=== PATIENT | female | born 1975 | race Caucasian/White ===

== ENCOUNTER 2023-06-20 10:08 | Emergency (ER) | payer OTHER, SELFPAY ==
[2023-06-20 10:16] VITALS: BP 125/89
[2023-06-20] MEDS: POLYTRIM OPHTHALMIC SOLUTION 2 DROP OPHTH (12:08)
--- NOTE | 2023-06-20 12:11 | ED.GENMED ---
History of Present Illness
General
Chief Complaint: Eye Problems
Source: patient
Exam Limitations: none
Time Seen by Provider: 06/20/23 11:03
Nursing documentation reviewed up to this point in time: agreed with
Travel History
Have you had any contact with someone who has COVID-19?: No
Do you have any symptoms of coronavirus? Fever > 100 degrees, chills, cough, shortness of breath, sore throat, loss of taste or smell, muscle aches, or headache?: No
History of Present Illness
History of Present Illness:
47-year-old female with a history of hypothyroidism presents for evaluation of redness and itching, discharge from the left eye. Patient notably had shingles that was diagnosed 2 weeks ago and future course of Valtrex. She still has mild rash on
the right neck. She says that last night she noted some itching in the left eye and noted that her eye was very red. She has been having significant drainage from the eye today and so she came to the emergency room to be assessed. She
denies any eye pain. She denies any loss of vision. She denies any trauma to the eye. No recent URI symptoms. She denies any other complaints today.
Review of Systems
Review of Systems
All Other Systems: ROS reviewed and negative except as documented in HPI and ROS
EENT: Reports other (Redness, itchiness, discharge from her eye)
Phy Exam
Physical Exam
Physical Exam:
General: Well appearing and non-toxic
Head: Normocephalic, atraumatic
Eyes: Pupils are 4 mm and briskly reactive to light bilaterally; extraocular movements are intact; on exam of the left eye patient has conjunctival injection with purulent expiring, no hypopyon; on fluorescein exam patient has no dendritic lesions,
no corneal abrasions or ulcers, negative Mikel sign; visual acuity as documented actually better in the affected eye; visual soto are intact
Neck: appears supple
CV: No evidence of cyanosis
Resp: No accessory muscle use
Abd: Non-distended
Extremities: No deformities
Neuro: Alert
Psych: Normal affect
Skin: Patient has rash on the right posterior lateral neck and on the left fonseca in the C2 dermatome, lesions mostly scabbed over no new vesicles noted
Scores
Heart Failure Risk
Heart Failure Risk Score: Not Applicable
Heart Score for Chest Pain Patients
STEMI patient?: Not applicable
Withdrawal Assessment of Alcohol
Withdrawal Assessment Completed?: Not applicable
Course
Orders/Labs/Results
Orders:
Orders
06/20/23 11:08
Visual Acuity- Treatment ONCE
06/20/23 11:46
Fluorescein Sodium [Ful-Dorene] 3 mg .ROUTE .STK-MED ONE
06/20/23 12:11
Ibuprofen [Motrin] 400 mg PO NOW STA
06/20/23 13:00
Polymyxin B/Trimethoprim [Polytrim Ophthalmic Solution] See Dose Instructions OPHTH QID
Vital Signs
Initial and Last Documented VS:
Initial Vital Signs
Temp Pulse Resp BP Pulse Ox
36.7 C 98 20 125/89 95
06/20/23 10:16 06/20/23 10:16 06/20/23 10:16 06/20/23 10:16 06/20/23 10:16
Last Documented Vital Signs
Temp Pulse Resp BP Pulse Ox
36.7 C 98 20 125/89 95
06/20/23 10:16 06/20/23 10:16 06/20/23 10:16 06/20/23 10:16 06/20/23 10:16
MDM/Problems Addressed
Differential Diagnosis Includes:
Conjunctivitis, corneal abrasion, uveitis
MDM/Problems Addressed:
47-year-old female presents for evaluation of itchiness, redness, drainage from the left eye over the past 24 hours. Vital signs normal. Exam as above. Exam is consistent with acute conjunctivitis. She has no dendritic lesions, no corneal
abrasions or ulcers. She does not wear contact lenses. Will plan to treat with antibiotic drops. Will refer to ophthalmology for follow-up exam. She feels comfortable with this plan. Spoke about return precautions all questions answered.
*Pulse Oximetry
Patient hypoxic: no
*Critical Care Note
Total Time (30-74mins, 75-104mins- exclusive of procedures): Not Applicable
Data Reviewed
Source: patient
ED Attending Note
-
Portions of this chart may have been created with voice recognition software.� Occasional wrong word or��sound alike� substitutions may have occurred due to the inherent limitations of voice recognition software.
Discharge Plan
Departure
Patient Disposition: Home (Routine Discharge)
Date of Disposition: 06/20/23
Time of Disposition: 12:00
Patient with high blood pressure during this ER visit?: No
Discharge Problem:
Conjunctivitis
Instructions: Conjunctivitis (Pinkeye) (DC)
Prescriptions:
New
polymyxin B sulf-trimethoprim 10,000 unit- 1 mg/mL drops
1 drp ophthalmic (eye) Q3H 10 Days Qty: 10 0RF
Referrals:
Angel Claire MD [Active] - Call in 1-3 days for appt (Ophthalmology)
Activity Restrictions/Additional Instructions:
Thank you for visiting the Emergency Department at [facility].
1. Please schedule a follow up appointment as directed. Call first thing tomorrow morning to make an appointment.
2. If indicated, please take your medications as instructed and indicated on discharge paperwork.
3. If any of your symptoms do not improve, or persist, or become more severe within 6-12 hours, please return to the emergency department for further care.
4. Please return to the emergency department if you develop a headache, neck pain/stiffness, fever greater than 100.4F, chest pain, shortness of breath, persistent nausea, vomiting, slurred speech, difficulty walking, numbness/tingling, weakness,
signs of infection or any other symptoms that are worrisome to you.
Please call [phone] if you have any questions.
Discharge Date and Time
Print Language: TURKISH
[2023-06-20] MEDS: MOTRIN 400 MG PO (12:20)
--- NOTE | 2023-06-20 12:51 | EDRN ---
One time LYFT provided via Charge nurse. Pt to ER entrance. Pt reports staying at [facility].
== END 2023-06-20 12:32 | disposition home or self-care (01) ==
LOC: EMR 10:08
PROVIDERS: EMERGENCY PHYSICIAN Emergency Medicine
DX: H10.9 Unspecified conjunctivitis (principal); E03.9 Hypothyroidism, unspecified
CPT/HCPCS: 99282

== ENCOUNTER 2023-06-28 18:43 | Emergency (ER) | payer OTHER, SELFPAY ==
[2023-06-28 18:58] VITALS: BP 112/76
[2023-06-28 19:28] LABS: % Basophils 1.2 % (0-2); % Eosinophils 3.3 % (0-6); % Immature Granulocytes 0.6 % (0-0.5); % Lymphocytes 21.9 % (20.5-51.1); % Monocytes 6.4 % (1.7-9.3); % Neutrophils 66.6 % (42.2-75.2); Absolute Basophils 0.1 10^3/uL (0-0.2); Absolute Eosinophils 0.3 10^3/uL (0-0.7); Absolute Immature Granulocytes 0.1 10^3/uL (0-0.05); Absolute Lymphocytes 1.8 10^3/uL (1.2-3.4); Absolute Monocytes 0.5 10^3/uL (0.1-0.6); Absolute Neutrophils 5.5 10^3/uL (1.4-6.5); Hematocrit 36.3 % (37.0-47.0); Hemoglobin 12.1 g/dL (12.0-16.0); Mean Corp Hgb Conc. 33.3 g/dL (33.0-37.0); Mean Corpuscular Hgb 28.3 pg (27.0-31.0); Mean Platelet Volume 9.4 fL (7.4-10.4); Nucleated Red Blood Cells % 0 %; Platelet Count 340 10^3/uL (130-400); Red Blood Cell Count 4.27 10^6/uL (4.20-5.40); Red Cell Dist. Width 15.5 % (11.5-14.5); White Blood Cell Count 8.3 10^3/uL (4.8-10.8)
[2023-06-28 19:41] LABS: ALT (SGPT) 14 U/L (0-35); AST (SGOT) 16 U/L (14-36); Albumin 3.7 g/dl (3.5-5.0); Alkaline Phosphatase 78 U/L (38-126); Blood Urea Nitrogen 15 mg/dl (7-17); Calcium 8.7 mg/dl (8.4-10.2); Carbon Dioxide 20 mmol/L (22-30); Chloride 111 mmol/L (98-107); Glucose 116 mg/dl (70-99); Potassium 4.1 mmol/L (3.5-5.1); Sodium 136 mmol/L (135-145); Total Bilirubin 0.2 mg/dl (0.2-1.3); Total Protein 7.3 g/dl (6.3-8.2); eGFR > 60.00
[2023-06-28 20:05] LABS: Urine Albumin Trace (Neg - Trace); Urine Bilirubin Negative (Negative); Urine Character Slightly Cloudy (Clear); Urine Color Yellow; Urine Glucose Negative (Negative); Urine Ketone Trace (Negative); Urine Leukocyte 2+ (Negative); Urine Nitrite Positive (Negative); Urine Occult Blood Negative (Negative); Urine Specific Gravity 1.025 (<1.030); Urine Urobilinogen Negative (Neg - 1+)
[2023-06-28 20:21] LABS: Urine Bacteria Many (Negative); Urine Red Blood Cell 0-2 /HPF (0-2); Urine White Cell 80-90 /HPF (0-5)
[2023-06-28 23:14] VITALS: BP 93/68
[2023-06-28 23:15] VITALS: BMI 42.2
[2023-06-29] VITALS: BP 104/70
[2023-06-29 01:00] VITALS: BP 100/62
[2023-06-29 02:00] VITALS: BP 91/52
--- NOTE | 2023-06-29 03:30 | ED.GENMED ---
Addendum entered and electronically signed by Kiley Abrams PA-C 07/01/23 07:17:
urine culture yeh sensitive e coli, on cefdinir, no treatment change
Original Note:
History of Present Illness
General
Chief Complaint: Weakness
Source: patient
Time Seen by Provider: 06/29/23 00:28
Nursing documentation reviewed up to this point in time: agreed with
Travel History
Have you had any contact with someone who has COVID-19?: No
Do you have any symptoms of coronavirus? Fever > 100 degrees, chills, cough, shortness of breath, sore throat, loss of taste or smell, muscle aches, or headache?: No
History of Present Illness
History of Present Illness:
Patient presents to ED secondary to 2-day history of dysuria along with urinary frequency, along with 24-hour history of right arm tingling sensation. Patient is currently being treated for shingles on the right side of her face and neck, with mild
improvement in symptoms. Denies headache. Denies nausea, vomiting, or diarrhea. Denies abdominal pain. Denies loss of appetite. Denies recent illness. Patient was discharged from [facility] recently after being treated for psychiatric
illness. In addition, patient reports being evaluated at [facility] last year secondary to right arm tingling sensation, and was told that she had 'stroke'. Patient had been on Plavix daily, until recently when she ran out of her
medication. Patient states that she currently does not have a family physician.
Review of Systems
Review of Systems
Allergies reviewed?: Yes
All Other Systems: ROS reviewed and negative except as documented in HPI and ROS
Constitutional: Reports no symptoms; Denies fever
EENT: Reports no symptoms
Respiratory: Reports no symptoms
Cardiac: Reports no symptoms
ABD/GI: Reports no symptoms
: Reports dysuria and frequency
Musculoskeletal: Reports no symptoms
Skin: Reports no symptoms
Neurological: Reports numbness; Denies dizzy, headache or weakness
Phy Exam
Physical Exam
Physical Exam:
Physical Exam
General: no apparent distress, not acutely ill. afebrile
Head: nc/at. eomi
Neck: supple. no meningeal signs.
Heart: s1/s2 regular rate and rhythm, no murmur. equal radial pulses.
Lungs: no acute respiratory distress. clear bilaterally
Abdomen: normal bowel sounds. not tender.
Neuro: alert and oriented. no focal neurological deficits. normal speech. normal gait.
Skin: crusty, resolving rash noted over right side of neck without any purulent drainage/erythema.
Psychiatric: well kept. interactive and cooperative
Extremities: no edema. no calf tenderness.
Course
Orders/Labs/Results
Orders:
Orders
06/28/23 19:21
Complete Blood Count/With Diff Urgent
Comprehensive Metabolic Panel Urgent
Urinalysis Reflex To Culture Urgent
Date Specimen was Collected: 06/28/23
Time Specimen was Collected: 19:05
Urine Microscopic Reflex Cult Urgent
Urine Culture Urgent
BRYAN Source: U
Specimen Description:
Date Specimen was Collected: 06/28/23
Time Specimen was Collected: 19:05
06/29/23 01:41
CT Head W/o Iv Contrast Urgent
Comment:
Reason For Exam: right arm numbness/tingling
06/29/23 03:30
Cefdinir [Omnicef] 300 mg PO NOW STA
06/29/23 04:02
Case Management Consult ONCE
Case Management Consult: Discharge Planning
Abnormal Lab Results
06/28/23
19:21
Hct 36.3 L %
(37.0-47.0)
RDW 15.5 H %
(11.5-14.5)
Abs Immat Gran (auto) 0.1 H 10^3/uL
(0-0.05)
Immature Gran % 0.6 H %
(0-0.5)
Chloride 111 H mmol/L
(98-107)
Carbon Dioxide 20 L mmol/L
(22-30)
Glucose 116 H mg/dl
(70-99)
Urine Ketones Trace A
(Negative)
Urine Nitrite (Reflex) Positive A
(Negative)
Leukocyte Esterase Rfl 2+ A
(Negative)
Urine WBC (Reflex) 80-90 A /HPF
(0-5)
Urine Bacteria (Reflex) Many A
(Negative)
06/28/23 19:21
06/28/23 19:21
Vital Signs
Initial and Last Documented VS:
Initial Vital Signs
Temp Pulse Resp BP Pulse Ox
98.3 F 84 20 112/76 96
06/28/23 18:58 06/28/23 18:58 06/28/23 18:58 06/28/23 18:58 06/28/23 18:58
Last Documented Vital Signs
Temp Pulse Resp BP Pulse Ox
98.5 F 81 15 92/66 98
06/29/23 03:53 06/29/23 03:53 06/29/23 03:53 06/29/23 03:53 06/29/23 03:53
MDM/Problems Addressed
MDM/Problems Addressed:
History and exam, along with urinalysis concerning for potential UTI. As such, patient will be started on antibiotics.
Patient with also nonspecific right arm tingling sensation, which has been intermittent recently. CT head without any acute findings. Difficult to exclude potential TIA. As such, patient will be restarted on Plavix as originally prescribed after
previous episode, along with referral to neurology for further evaluation and treatment. If there is no focal neurological deficit noted, with ongoing shingles treatment as well as current UTI, I do not believe that any further inpatient
evaluation/treatment is warranted at this time. It is reasonable to start patient on antibiotics and refer to medical clinic as well as neurology for an outpatient evaluation/treatment. Advised to return to ED with worsening symptoms. Patient
expresses understanding at time of discharge.
Prior to discharge, patient expressed that she has no means of getting home, due to lack of funding and as she is currently homeless. As such, case management consulted for assistance with discharge plan
*Critical Care Note
Total Time (30-74mins, 75-104mins- exclusive of procedures): Not Applicable
ED Attending Note
-
Portions of this chart may have been created with voice recognition software.� Occasional wrong word or��sound alike� substitutions may have occurred due to the inherent limitations of voice recognition software.
Discharge Plan
Departure
Patient Disposition: Home (Routine Discharge)
Date of Disposition: 06/29/23
Time of Disposition: 03:30
Patient with high blood pressure during this ER visit?: Yes
Discharge Problem:
UTI (urinary tract infection), Paresthesia
Instructions: Paresthesia (DC), Urinary Tract Infection, Adult ED
Prescriptions:
New
cefdinir 300 mg capsule
300 mg PO BID Qty: 14 0RF
clopidogrel [Plavix] 75 mg tablet
75 mg PO DAILY Qty: 30 0RF
No Action
polymyxin B sulf-trimethoprim 10,000 unit- 1 mg/mL drops
1 drp ophthalmic (eye) Q3H 10 Days Qty: 10 0RF
Referrals:
[facility] [Outside]
Kiley Jaffe, DO [Active] -
UNKNOWN - PT DOES,NOT KNOW [Family Provider] -
Activity Restrictions/Additional Instructions:
As discussed, you must follow-up with referred medical clinic as well as neurologist for further evaluation and treatment. Please return to ED with worsening symptoms. Your prescriptions have been sent electronically to [facility] pharmacy on [address]
in [place].
Interventions
Interventions:
*Risk Screen - Suicide Last Done: 06/28/23 18:58
*General Assessment Last Done: 06/28/23 18:58
*Neglect/Abuse Screening Last Done: 06/28/23 18:58
ED- Fall Risk Assessment Last Done: 06/28/23 18:58
*ED COVID-19 Vaccine History Last Done: 06/28/23 18:58
*Nursing Disposition Last Done: 06/29/23 04:26
ED- Cardiac Assessment Last Done: 06/28/23 23:15
ED- Neurological Assessment Last Done: 06/28/23 23:15
ED- Pulmonary Assessment Last Done: 06/28/23 23:15
Discharge Date and Time
Discharge Date/Time: 06/29/23 04:30
Print Language: SERBIAN
[2023-06-29] MEDS: OMNICEF 300 MG PO (03:49)
[2023-06-29 03:50] VITALS: BP 92/66
[2023-06-29 03:53] VITALS: BP 92/66
--- NOTE | 2023-06-29 11:45 | CM ---
CM received consult to assist with ride. Patient declined to wait for assistance from CM and left the emergency room.
== END 2023-06-29 04:30 | disposition home or self-care (01) ==
LOC: EMR 18:43
PROVIDERS: EMERGENCY PHYSICIAN Emergency Medicine
DX: N39.0 Urinary tract infection, site not specified (principal); R20.2 Paresthesia of skin; R03.0 Elevated blood-pressure reading, without diagnosis of hypertension; Z59.00 Homelessness unspecified; Z91.148 Patient's other noncompliance with medication regimen for other reason; B02.9 Zoster without complications; E03.9 Hypothyroidism, unspecified; D64.9 Anemia, unspecified; Z86.73 Personal history of transient ischemic attack (TIA), and cerebral infarction without residual deficits; Z79.02 Long term (current) use of antithrombotics/antiplatelets
CPT/HCPCS: 99284; 70450; 80053; 81003; 81015; 85025; 87086; 87088; 87186

== ENCOUNTER 2023-09-16 23:46 | Emergency (ER) | payer OTHER, SELFPAY ==
[2023-09-16 23:46] VITALS: BP 133/83
--- NOTE | 2023-09-16 23:51 | ED.GENMED ---
History of Present Illness
General
Chief Complaint: Extremity Pain (non-traumatic)
Source: patient, ambulance crew and previous hospital records (ED visit June of this year where patient prevented with 2-day history of UTI symptoms as well as right arm paresthesia. Noted to have UTI. CT of the head was unremarkable. Noted to
be homeless at that time)
Exam Limitations: none
Time Seen by Provider: 09/16/23 23:49
Nursing documentation reviewed up to this point in time: agreed with
History of Present Illness
History of Present Illness:
This is a 47-year-old currently homeless woman who called 911 from local grocery store complaining of bilateral lower extremity pain and swelling that has been ongoing for the past several days.
She reports no history of similar episodes in the past.
She denies recent falls nor injuries. She denies coughing or shortness of breath. Denies dyspnea on exertion, denies chest pain. She denies abdominal pain, no nausea nor vomiting, no diarrhea nor constipation.
Her only daily medications are levothyroxine as well as oral iron tablets. She states these have been prescribed/refilled at the last hospital she visited.
Review of records reveals ED visit June of this year with complaints of UTI symptoms as well as right arm paresthesia. At that time had recently been discharged from [facility]. Was also homeless at that time. ED evaluation in June noted
UTI. Unremarkable CT of the head. Unremarkable laboratory studies.
Case management was consulted during ED visit in June to assist with transportation etc. but patient left the ED on her own accord prior to case management evaluation.
Past History
Past History
ED Past Medical History: CVA (Reported TIA in the past), Hypothyroidism, Psychiatric and Other (Anemia; UTI)
ED Past Surgical History: Appendectomy and
Social History
Tobacco: Non-smoker
Alcohol: None
Drug: None
Personal: Single
Living: homeless
Employment: Not employed
Family History
Family History: Other (Noncontributory)
Phy Exam
Physical Exam
Physical Exam:
GENERAL: 47-year-old obese woman appears somewhat older than stated age. Disheveled and unkempt. Awake and alert, easily conversant, cooperative and overall appears in no acute distress.
EYE: anicteric, there is mild eczematous dermatitis of eyelids.
NECK: Supple, nontender, no meningismus, no significant adenopathy. No JVD.
ENT: oral mucosa is moist. No rhinorrhea.
CARDIAC: Regular rate and rhythm. no murmur.
LUNGS: Clear breath sounds bilaterally, no acute respiratory distress, no wheezes/rales/rhonchi
ABDOMEN: Obese, soft, nondistended, without focal tenderness, normoactive BS.
NEUROLOGICAL: Alert and oriented x3, no focal neuro deficits.
SKIN: Warm and dry, normal color, skin intact. No rash.
MUSCULOSKELETAL: There is tense nonpitting edema bilateral lower legs with mild venous stasis skin thickening and erythema distal aspect of the lower legs bilaterally. There is no ulcerations nor drainage. Mild generalized tenderness to the lower
legs bilaterally. There is no joint effusion. Peripheral pulses are full and equal b/l.
PSYCH: Mildly blunted affect. Cooperative. Normal speech pattern.
Course
Orders/Labs/Results
Orders:
Orders
09/17/23 00:01
US Periph Venous LOWER Ext Mark Urgent
Comment:
Reason For Exam: B/L LE EDEMA X FEW DAYS
09/17/23 00:13
Complete Blood Count/With Diff Urgent
Comprehensive Metabolic Panel Urgent
Free T4 Urgent
NT-proBNP Urgent
TSH Reflex To Free T4 Urgent
09/17/23 01:[address] Non Medication Order As Directed
Physician Order: knee high compression stockings b/l
Above order entered?: Yes
09/17/23 01:48
Levothyroxine [Synthroid] 300 mcg PO NOW STA
Abnormal Lab Results
09/17/23
00:13
RBC 3.61 L 10^6/uL
(4.20-5.40)
Hgb 10.8 L g/dL
(12.0-16.0)
Hct 33.0 L %
(37.0-47.0)
MCHC 32.7 L g/dL
(33.0-37.0)
RDW 16.0 H %
(11.5-14.5)
Abs Immat Gran (auto) 0.1 H 10^3/uL
(0-0.05)
Immature Gran % 1.6 H %
(0-0.5)
Chloride 108 H mmol/L
(98-107)
Carbon Dioxide 20 L mmol/L
(22-30)
BUN 18 H mg/dl
(7-17)
Creatinine 1.3 H mg/dL
(0.6-1.0)
Glucose 115 H mg/dl
(70-99)
TSH (Reflex) 81.20 H uIU/ml
(0.47-4.68)
Free T4 0.15 L ng/dl
(0.78-2.19)
09/17/23 00:13
09/17/23 00:13
Vital Signs
Initial and Last Documented VS:
Initial Vital Signs
Temp Pulse Resp BP Pulse Ox
98.8 F 93 18 133/83 96
09/16/23 23:46 09/16/23 23:46 09/16/23 23:46 09/16/23 23:46 09/16/23 23:46
Last Documented Vital Signs
Temp Pulse Resp BP Pulse Ox
98.8 F 93 18 133/83 96
09/16/23 23:46 09/16/23 23:46 09/16/23 23:46 09/16/23 23:46 09/16/23 23:46
MDM/Problems Addressed
Differential Diagnosis Includes:
Concern for venous stasis/dependent edema, lymphedema, other consideration is DVT, CHF, exacerbation of hypothyroidism, exacerbation of anemia.
Will check venous Doppler bilateral lower extremities.
Will check labs including BNP and TSH, CBC.
Chronic conditions affecting care: Other (Hypothyroidism, anemia.)
*Radiology
Radiology exam reviewed: other (Venous Dopplers are negative for DVT bilaterally. There is note of subcutaneous edema bilateral lower legs.)
*Pulse Oximetry
Patient hypoxic: no
*Critical Care Note
Total Time (30-74mins, 75-104mins- exclusive of procedures): Not Applicable
Patient Management
Social determinants of health affecting care: Living situation (Patient is chronically homeless. Poor follow-up with PCP), Poor outpatient follow-up and Poor social support
Update Note
Update Note:
09/17/2023 0149 AM
Patient sleeping when undisturbed, awakens easily and overall appears in no acute distress.
Venous Doppler bilateral lower extremities negative for DVT. There is note of subcutaneous edema.
Labs show mild anemia. White blood cell count is normal.
Chemistries with mildly elevated creatinine of 1.3 which is bumped up from previous. I suspect an element of dehydration as BNP is quite low at 31.
TSH is markedly elevated at 81. Patient now admits that she ran out of her Synthroid perhaps 2 days ago.
Review of records notes a brief hospitalization January at [facility] where she was treated for potential TIA and also found to be hypothyroid with TSH of 90. Started on Synthroid 200 mcg at that time.
She was also recommended to continue low-dose aspirin, Lipitor 80 mg was started as well as to continue ferrous sulfate 325 mg.
Patient admits that she has run out of her medications and had been following with the primary care physician tony Jimenez but states this is no longer her primary care physician. Currently lacks PCP.
Will refill her medications and recommend we titrate Synthroid up to 300 mcg.
Will attempt LISANDRA stockings versus brandy wraps.
Encouraged to increase clear liquids on a daily basis.
Prior records note that patient had been staying in a homeless group home but she elected to leave the group home and declines to return.
Will refer to our family practice clinic for follow-up and patient has been encouraged to follow-up with a PCP to recheck thyroid function within the next 4 to 6 weeks.
Recommend she elevate her legs when seated.
ED Attending Note
-
Portions of this chart may have been created with voice recognition software.� Occasional wrong word or��sound alike� substitutions may have occurred due to the inherent limitations of voice recognition software.
Discharge Plan
Departure
Patient Disposition: Home (Routine Discharge)
Date of Disposition: 09/17/23
Time of Disposition: :53
Patient with high blood pressure during this ER visit?: No
Condition: Good
Discharge Problem:
Dependent edema, Hypothyroidism, Creatinine elevation
Instructions: Hypothyroidism (underactive thyroid), Lymphedema (DC)
Prescriptions:
New
levothyroxine 300 mcg tablet
300 mcg PO DAILY Qty: 30 1RF
aspirin 81 mg capsule
81 mg PO DAILY Qty: 90 0RF
atorvastatin 80 mg tablet
80 mg PO HS Qty: 90 0RF
ferrous sulfate 325 mg (65 mg iron) tablet
325 mg PO DAILY Qty: 90 0RF
Discontinued
polymyxin B sulf-trimethoprim 10,000 unit- 1 mg/mL drops
1 drp ophthalmic (eye) Q3H 10 Days Qty: 10 0RF
cefdinir 300 mg capsule
300 mg PO BID Qty: 14 0RF
clopidogrel [Plavix] 75 mg tablet
75 mg PO DAILY Qty: 30 0RF
Referrals:
[facility] [Provider Group] - Call in 1-3 days for appt
Vimal Jimenez DO [Family Provider] -
Interventions
Interventions:
*Risk Screen - Suicide Last Done: 09/16/23 23:46
*General Assessment Last Done: 09/16/23 23:46
*Neglect/Abuse Screening Last Done: 09/16/23 23:46
ED-Skin Assessment Last Done: 09/17/23 00:22
ED-Peripheral Vascular Assessment Last Done: 09/17/23 00:22
ED-Musculoskeletal Assessment Last Done: 09/17/23 00:22
Discharge Date and Time
Print Language: CZECH
[2023-09-17 00:30] LABS: % Basophils 1.5 % (0-2); % Eosinophils 2.9 % (0-6); % Immature Granulocytes 1.6 % (0-0.5); % Lymphocytes 30.2 % (20.5-51.1); % Neutrophils 56.8 % (42.2-75.2); Absolute Basophils 0.1 10^3/uL (0-0.2); Absolute Eosinophils 0.2 10^3/uL (0-0.7); Absolute Immature Granulocytes 0.1 10^3/uL (0-0.05); Absolute Lymphocytes 2.3 10^3/uL (1.2-3.4); Absolute Monocytes 0.5 10^3/uL (0.1-0.6); Absolute Neutrophils 4.3 10^3/uL (1.4-6.5); Hemoglobin 10.8 g/dL (12.0-16.0); Mean Corp Hgb Conc. 32.7 g/dL (33.0-37.0); Mean Corpuscular Hgb 29.9 pg (27.0-31.0); Mean Corpuscular Volume 91.4 fL (81.0-99.0); Mean Platelet Volume 9.7 fL (7.4-10.4); Nucleated Red Blood Cells % 0 %; Platelet Count 206 10^3/uL (130-400); Red Blood Cell Count 3.61 10^6/uL (4.20-5.40); White Blood Cell Count 7.6 10^3/uL (4.8-10.8)
[2023-09-17 00:35] LABS: ALT (SGPT) 16 U/L (0-35); AST (SGOT) 23 U/L (14-36); Albumin 4.3 g/dl (3.5-5.0); Alkaline Phosphatase 64 U/L (38-126); Blood Urea Nitrogen 18 mg/dl (7-17); Calcium 9.3 mg/dl (8.4-10.2); Carbon Dioxide 20 mmol/L (22-30); Chloride 108 mmol/L (98-107); Glucose 115 mg/dl (70-99); Sodium 138 mmol/L (135-145); Total Bilirubin 0.4 mg/dl (0.2-1.3); Total Protein 7.3 g/dl (6.3-8.2); eGFR 51.04
[2023-09-17 00:45] LABS: NT-proBNP 31.4 pg/ml
[2023-09-17 01:42] LABS: Free T4 0.15 ng/dl (0.78-2.19)
[2023-09-17 02:13] VITALS: BP 142/78
[2023-09-17] MEDS: SYNTHROID 300 MCG PO (02:37)
== END 2023-09-17 02:45 | disposition home or self-care (01) ==
LOC: EMR 23:46
PROVIDERS: EMERGENCY PHYSICIAN Emergency Medicine; FAMILY PHYSICIAN Family Medicine
DX: R60.0 Localized edema (principal); E03.9 Hypothyroidism, unspecified; R79.89 Other specified abnormal findings of blood chemistry; D64.9 Anemia, unspecified; R20.2 Paresthesia of skin; M79.604 Pain in right leg; M79.605 Pain in left leg; Z59.00 Homelessness unspecified; Z79.890 Hormone replacement therapy; Z86.73 Personal history of transient ischemic attack (TIA), and cerebral infarction without residual deficits; Z87.440 Personal history of urinary (tract) infections; Z90.49 Acquired absence of other specified parts of digestive tract; Z91.148 Patient's other noncompliance with medication regimen for other reason
CPT/HCPCS: 99284; 80053; 83880; 84439; 84443; 85025; 93970

== ENCOUNTER 2023-09-25 06:30 | Observation (INO) | payer OTHER, SELFPAY ==
[2023-09-25] VITALS (10 sets, daily range): BP systolic 103–140; BP diastolic 61–94; PULSE 71; O2SAT 96; BMI 47.2
[2023-09-25 02:47] LABS: % Basophils 0.9 % (0-2); % Eosinophils 1.3 % (0-6); % Immature Granulocytes 0.4 % (0-0.5); % Lymphocytes 20.9 % (20.5-51.1); % Monocytes 7.1 % (1.7-9.3); % Neutrophils 69.4 % (42.2-75.2); Absolute Basophils 0.1 10^3/uL (0-0.2); Absolute Eosinophils 0.1 10^3/uL (0-0.7); Absolute Lymphocytes 1.4 10^3/uL (1.2-3.4); Absolute Monocytes 0.5 10^3/uL (0.1-0.6); Absolute Neutrophils 4.8 10^3/uL (1.4-6.5); Hematocrit 31.3 % (37.0-47.0); Hemoglobin 10.4 g/dL (12.0-16.0); Mean Corp Hgb Conc. 33.2 g/dL (33.0-37.0); Mean Corpuscular Hgb 30.3 pg (27.0-31.0); Mean Corpuscular Volume 91.3 fL (81.0-99.0); Nucleated Red Blood Cells % 0 %; Platelet Count 263 10^3/uL (130-400); Red Blood Cell Count 3.43 10^6/uL (4.20-5.40); Red Cell Dist. Width 15.7 % (11.5-14.5); White Blood Cell Count 6.9 10^3/uL (4.8-10.8)
[2023-09-25 03:01] LABS: ALT (SGPT) 11 U/L (0-35); AST (SGOT) 17 U/L (14-36); Alkaline Phosphatase 69 U/L (38-126); Blood Urea Nitrogen 13 mg/dl (7-17); Calcium 8.8 mg/dl (8.4-10.2); Carbon Dioxide 22 mmol/L (22-30); Chloride 107 mmol/L (98-107); Glucose 99 mg/dl (70-99); Potassium 3.8 mmol/L (3.5-5.1); Sodium 136 mmol/L (135-145); Total Bilirubin 0.5 mg/dl (0.2-1.3); eGFR > 60.00
--- NOTE | 2023-09-25 04:54 | ED.MUSCINJ ---
HPI-Injury
General
Chief Complaint: Extremity Pain (non-traumatic)
Source: patient
Time Seen by Provider: 09/25/23 03:51
Nursing documentation reviewed up to this point in time: agreed with
History of Present Illness-Injury
Initial Injury comments:
This is a homeless 47-year-old female that presents with worsening leg swelling and inability to walk. Patient called 911 from local hotel where she is staying reporting lower extremity swelling, redness along with the inability to walk. Patient
was seen in the emergency department approximately 1 week ago for similar symptoms but states that tonight they have been worse. At last visit patient states that
Past History
Past History
ED Past Medical History: CVA (Reported TIA in the past), Hypothyroidism, Psychiatric and Other (Anemia; UTI)
ED Past Surgical History: Appendectomy and
Social History
Tobacco: Non-smoker
Alcohol: None
Drug: None
Personal: Single
Living: homeless
Employment: Not employed
Family History
Family History: Other (Noncontributory)
Review of Systems
Review of Systems
Allergies reviewed?: Yes
All Other Systems: ROS reviewed and negative except as documented in HPI and ROS
Constitutional: Reports fatigue and sleep disturbance
EENT: Reports no symptoms
Respiratory: Reports no symptoms
Cardiac: Reports no symptoms
ABD/GI: Reports no symptoms
: Reports no symptoms
Musculoskeletal: Reports edema and back pain
Skin: Reports no symptoms
Neurological: Reports no symptoms
Endocrine: Reports no symptoms
Hematologic/Lymphatic: Reports no symptoms
Psychiatric: Reports anxiety
Phy Exam
General Physical Exam
General Presentation: mild distress
General age: appears older than age
General Skin: warm and feels hot
General Habitus: obese and poor hygiene
General Mental: anxious
General Hydration: dry mucous membranes
Pulmonary Exam
Pulmonary Exam: lungs clear and no respiratory distress
Neurological Exam
Neurological Exam: alert and oriented x3
Musculoskeletal Exam
Musculoskeletal Exam: full ROM and edema
Skin Exam
Skin Exam: erythema (Bilateral lower), redness (Likely fungal infection in the groin and upper leg) and warmth
Injury Course
Orders/Labs/Results
Orders:
Orders
09/25/23 02:36
CMP [Comprehensive Metabolic Panel] Urgent
Complete Blood Count/With Diff Urgent
TSH Reflex To Free T4 Urgent
09/25/23 04:56
US Periph Venous LOWER Ext Mark Urgent
Comment:
Reason For Exam: swelling, worse from last week
09/25/23 05:11
Case Management Consult ONCE
Case Management Consult: Discharge Planning
09/25/23 05:12
Add On- LAB Urgent
Tests Added?: tsh reflex to free t4
09/25/23 05:21
Nystatin Cream [Mycostatin Cream] 1 applic TOPICAL NOW STA
Abnormal Lab Results
09/25/23
02:36
RBC 3.43 L 10^6/uL
(4.20-5.40)
Hgb 10.4 L g/dL
(12.0-16.0)
Hct 31.3 L %
(37.0-47.0)
RDW 15.7 H %
(11.5-14.5)
Creatinine 1.1 H mg/dL
(0.6-1.0)
09/25/23 02:36
09/25/23 02:36
*Pulse Oximetry
Patient hypoxic: no
*Critical Care Note
Total Time (30-74mins, 75-104mins- exclusive of procedures): Not Applicable
ED Attending Note
-
Portions of this chart may have been created with voice recognition software.� Occasional wrong word or��sound alike� substitutions may have occurred due to the inherent limitations of voice recognition software.
Discharge Plan
Departure
Patient Disposition: Admit
Date of Disposition: 09/25/23
Time of Disposition: 05:32
Admit to: Med/Surg
Presentation/result/management discussed w/ accepting MD/DO: Hospitalist
Discharge Problem:
Cellulitis, Leg edema, Ambulatory dysfunction, Fungal infection
Prescriptions:
No Action
levothyroxine 300 mcg tablet
300 mcg PO DAILY Qty: 30 1RF
aspirin 81 mg capsule
81 mg PO DAILY Qty: 90 0RF
atorvastatin 80 mg tablet
80 mg PO HS Qty: 90 0RF
ferrous sulfate 325 mg (65 mg iron) tablet
325 mg PO DAILY Qty: 90 0RF
Referrals:
Vimal Jimenez DO [Family Provider] -
Interventions
Interventions:
*Risk Screen - Suicide Last Done: 09/25/23 02:00
ED- Fall Risk Assessment Last Done: 09/25/23 02:00
ED-Skin Assessment Last Done: 09/25/23 02:00
ED-Musculoskeletal Assessment Last Done: 09/25/23 02:00
Discharge Date and Time
Print Language: ROMANSH
--- NOTE | 2023-09-25 06:02 | HPS.HSE ---
Family Physician
-
Family Physician: Vimal Jimenez, DO
Chief Complaint
-
Leg swelling unable to walk
History of Present Illness
47 F Homeless , called 911 , reports unable to walk due to Rt Toñito pain and swelling.
She was seen at ER on 09/15 with similar presentation.
She denies recent falls nor injuries.
Medical History
Past Medical History
Past Medical History: Reports Other (CVA (Reported TIA in the past), Hypothyroidism, Psychiatric and Other (Anemia; UTI)
Past Surgical History: Reports Appendectomy and
Social History
Tobacco: Non-smoker
Alcohol: None
Living: Homeless
Family History
Family History: Not pertinent
Allergies / Home Medications
Allergies reflects when Allergies were last updated in [employer].
Home Medications with original date entered in [employer]
Allergy/Medication List:
Allergies
Allergy/AdvReac Type Severity Reaction Status Date / Time
No Known Allergies Allergy Verified 09/25/23 00:47
Home Medications
aspirin 81 mg capsule 81 mg PO DAILY #90 caps 09/17/23
atorvastatin 80 mg tablet 80 mg PO HS #90 tabs 09/17/23
ferrous sulfate 325 mg (65 mg iron) tablet 325 mg PO DAILY #90 tabs 09/17/23
levothyroxine 300 mcg tablet 300 mcg PO DAILY #30 tabs 09/17/23
Review of Systems
-
Constitutional: Reports No Symptoms
EENT: Reports No Symptoms
Respiratory: Reports No Symptoms
Cardiac: Reports No Symptoms
Abdomen/GI: Reports No Symptoms
: Reports No Symptoms
Musculoskeletal: Reports No Symptoms
Skin: Reports See HPI
Neurological: Reports No Symptoms
Endocrine: Reports No Symptoms
Hematologic/Lymphatic: Reports No Symptoms
Psych: Reports No Symptoms
Physical Exam
Vital Signs
Vital Signs
Temp Pulse Resp BP Pulse Ox
98.9 F 74 15 109/71 97
09/25/23 00:45 09/25/23 05:15 09/25/23 05:15 09/25/23 04:00 09/25/23 00:45
Physical Exam
General: Well Developed, Well Nourished and No Apparent Distress
HEENT: NormoCephalic, Moist mucous membranes and Atraumatic
Respiratory: Clear
Cardiac: S1/S2 and Regular Rhythm; No Murmur or Rub
GI: Soft, Non Tender, Non Distended and Normal Bowel Sounds; No Organomegaly
Rectal: Deferred by Provider
Musculoskeletal: No Clubbing, No Cyanosis, No Edema and Other (unkempt thicked toe nails)
Skin: Rash (at both lower abdomen and groin pipe supect fungal dermatitiis ) and Other ( tense nonpitting edema bilateral lower legs with mild venous stasis skin thickening and erythema distal aspect of the lower legs bilaterally. There is no
ulcerations nor drainage. Mild generalized tenderness to the lower legs bilaterally. )
Neuro: AO x 3 and Nonfocal/grossly intact
Psych: Calm
Laboratory Results
-
09/25/23 02:36
09/25/23 02:36
Laboratory Results
Total Bilirubin 0.5 mg/dl (0.2-1.3) 09/25/23 02:36
AST 17 U/L (14-36) 09/25/23 02:36
ALT 11 U/L (0-35) 09/25/23 02:36
Alkaline Phosphatase 69 U/L (38-126) 09/25/23 02:36
Data Reviewed
-
Lab Data: Labs Reviewed by me
Old Records: Reviewed
Impression/Plan
-
Reviewed VS: afebrile and stable
Data
WCC 6.9
Hgb 10.8
Unremarkable CMP
US B/L Toñito pending
NO PRIOR hospitalist admission:
ASSESSMENT & PLAN
Pending Rx reconciliation
B/l tender well demarcated erythema of both legs :> cellulitis vs. chronic venous stasis s of both legs
Non- pitting b/l LLEx edema with venous stasis skin thickening and erythema distal aspect of the lower legs
No ulcerations nor drainage
Associated gait dysfunction
- Empiric Keflex PO 500 mg BID
- PT/OT
- Wound care consult for compression rx ?
Both lower abdomen and groin area suspect fungal dermatitics
- topical Desenex powder
Chromic conditions:
CVA (Reported TIA in the past),
Hypothyroidism
Anemia
UTI
DVT Px: LMWH
Code: Full
Obs MS
[2023-09-25] MEDS: MYCOSTATIN CREAM 1 APPLIC TOPICAL (06:19)
--- NOTE | 2023-09-25 07:47 | PHANOTE ---
med rec note- patient has not filled any her medication since March 19 2023- item that were filled are
Lipitor 40mg daily
aspirin 81mg daily
iron 325mg daily
Synthroid 200mcg daily
sertraline 150mg daily
AripiprAZOLE 5MG DAILY
--- NOTE | 2023-09-25 10:07 | W.PN.HOSP.TC ---
Today's Communication/Plan
-
Oral antibiotics
PT assessment.
Discharge planing
Assessment / Plan
Assessment / Plan
Impression:
Presentation with reported ambulatory dysfunction.
Chronic bilateral lower extremity cellulitis with stasis dermatitis
Hypothyroidism by history.
Chronic normocytic anemia
Obesity
Homeless.
Plan:*
Bilateral lower extremity cellulitis/stasis dermatitis.
Exam with mild bilateral erythema and induration. Normal peripheral pulses.
Afebrile with no generalized symptoms
Normal white count
Lower extremity Doppler negative for DVT.
Initiated on oral antibiotics.
Reported ambulatory dysfunction
Homeless.
Physical therapy assessment
Discharge planing
Discussed with case management
Hypothyroidism by history
Update TSH.
Patient reports not being on any prescriptive medications.
DVT prophylaxis
Full code.
Anticipated Discharge: 24 - 48 hours
Subjective/Interval History
-
Date of Service: September 25, 2023
Objective Data
-
Labs:
Laboratory Results
09/25/23
02:36
WBC 6.9
Hgb 10.4 L
Hct 31.3 L
Plt Count 263
Sodium 136
Potassium 3.8
Chloride 107
Carbon Dioxide 22
BUN 13
Creatinine 1.1 H
Glucose 99
Calcium 8.8
Total Bilirubin 0.5
AST 17
ALT 11
Alkaline Phosphatase 69
Vital Signs:
Vital Signs
Temp Pulse Resp BP Pulse Ox
98.9 F 71 16 103/66 99
09/25/23 00:45 09/25/23 09:01 09/25/23 09:01 09/25/23 09:01 09/25/23 09:01
Physical Exam
-
General: Well Developed and No Apparent Distress
HEENT: Normocephalic, Atraumatic and Moist Mucous Membranes
Respiratory: Clear to Auscultation
Cardiac: Regular Rhythm and S1/S2; Negative Murmur, Rub or Gallop
GI: Soft, Nontender, Nondistended and Normal Bowel Sounds; Negative Organomegaly
Rectal: Deferred by Provider
Musculoskeletal: No Clubbing, No Cyanosis and Other (Mild bilateral lower extremity erythema and induration)
Skin: Negative Rash
Neuro: Awake, Alert, Oriented and Nonfocal/Grossly Intact
--- NOTE | 2023-09-25 10:10 | EDRN ---
this WOMEN'S HEALTH CARE NURSE PRACTITIONER answered this pts call zarate. the pt is requesting to go to the bathroom. this WOMEN'S HEALTH CARE NURSE PRACTITIONER assisted this pt to ambulate from ER stretcher to the bathroom in her ER treatment room. the pt ambulated independently with a slightly unsteady gait due
to pain in bilateral legs which is worsened with ambulation per pt report. this WOMEN'S HEALTH CARE NURSE PRACTITIONER brought the pt a walker to use when ambulating.
the pt continues to wait to be assigned an med/surg room.
will continue to monitor the pt.
--- NOTE | 2023-09-25 10:35 | EDRN ---
per the pts request, this MANAGER EMBALMER FUNERAL DIRECTOR placed a lunch order at this time. Per cafeteria staff, the pts lunch wont be delivered until approx 1pm per hospital protocol. the pt was notified of above and expressed frustration stating 'that is ridiculous to
wait over 2 hours for lunch.'
the pt continues to wait to be assigned a med/surg room.
--- NOTE | 2023-09-25 11:14 | CM ---
CM reviewed chart. CM introduced self and role to patient. Patient sitting in litter with eyes closed. Patient stated she was sitting at [employer] when she was picked up by EMS.
Patient shared that she is homeless. [place] area and sleeps on top of a blanket. She does receive $943 from [employer] and $291 in food stamps. Patient stated that she has a bus pass and ride the public bus for transportation.
She shared that she does not have any support. Her boyfriend, who is listed in her chart, is currently at [facility]. She does not want him to know she is in the hospital.
She shared that she wanted Chasity Vineet as her contact instead, but did not have her number. She does not own any DME.
She will need transportation set up vs. using the public bus, once she is discharged from the hospital.
CM explained the next step will be to have PT evaluate patient. Mana stated, 'But I haven't even been placed in a room yet'.
CM will continue to monitor case and assist with any further discharge needs.
[2023-09-25] MEDS: KEFLEX 500 MG PO ×2 (11:21→14:56)
--- NOTE | 2023-09-25 12:00 | CM ---
Addendum entered by Winter Schroeder 09/25/23 14:57:
Cameron from [facility] confirmed patient is able to go to the [facility]. Doctor gave paper rx to patient for antibiotics. Patient refused transportation assistance and said she'll take DART to the hotel. She was informed that her BF can not stay
with her for any reason. She verbalized understanding. Per patient, he is in the [facility].
All information above shared with bedside RN. JOSE ALFREDO Mar also informed on last two bus times that come to the hospital. Isabela confirmed she received the times.
Patient is ok to be discharged, from CM standpoint.
Addendum entered by Winter Schroeder 09/25/23 14:24:
CM offered patient transportation to a 'cooling station' (designated business or libraries where people can stay for the day to be out the heat) and she refused. CM also offered transportation to somewhere else, and patient refused again. She does
have a bus pass and said she'll take the bus.
Addendum entered by Winter Schroeder 09/25/23 13:16:
Awaiting call back from Chery Cheema to see if [facility] might possibly take patient in for one night. Bedside RN aware.
Addendum entered by Winter Schroeder 09/25/23 13:08:
Spoke with Chery Cheema, Classics Teacher at [facility]. She stated that patient's benefits are out of [employer]. Patient had a CM at [facility]. His name is Qasim Rhodes. [facility] has also been on patient's case and have not had any success
with getting into with Mana.
Chery Cheema shared that many substance abuse agencies have reached out to [facility], trying to get resources for patient. That means patient has been reaching out to substance abuse agencies for help as well.
Patient is a do not return at [facility] and [facility].
[facility]- an agency that works with homeless individuals who have mental illness, have been also trying to get in touch with Mana. Rory Gallardo is the Applied Researcher there. His number is: [phone]. CM left a VM with him. CM would like to confirm if
[facility] has been trying to develop a housing plan with patient. Per Chery Cheema, they too, have been unsuccessful with getting in contact with patient. She has either hung up the phone on them or will not answer their calls.
Chery Cheema shared that patient is now considered 'chcf-resistant'. She has refused many opportunities for housing.
Addendum entered by Winter Schroeder 09/25/23 12:38:
PT shared that patient is safe to go back into the community. Attending physician made aware and place d/c order. Patient refusing to go to a chcf. CM called [facility] and awaiting return phone call to see if they can provide patient with a night stay
at [facility]. It is 98 degrees outside.
Original Note:
CM asked patient if she has a CM out in the community. Patient denied having one.
[2023-09-25] MEDS: DESENEX/MITRAZOL/ZEASORB 1 APPLIC TOPICAL (12:44)
--- NOTE | 2023-09-25 14:17 | WOUNDNOTE ---
L ANTERIOR LOWER LEG
--- NOTE | 2023-09-25 14:17 | WOUNDNOTE ---
WON RN note: Patient admitted with Cellulitis and leg edema, ambulatory dysfunction and fungal infection.
See H&P for complete history. Homeless, currently living in a hotel.
PMH: Stroke, psyche, anemia, hypothyroid, obesity, appendectomy and c section.
Wound Location and type/assessment: Patient admitted with: trace edema in legs, mildly dry skin. L anterior lower leg with what patient said is a bug bite. Patient did not like using brandy wraps, states they were making her legs more swollen. Sacrum
and heels intact, mild MASD in skin folds, fungal powder already ordered and at bedside. Was in bathroom washing up earlier patient states. CM at bedside during assessment, for discharge today.
Appetite: Good.
Pressure redistribution devices in place: Sitting in chair, ambulated from BR on own.
Plan: Applied Tubigrip size F both legs knee high, patient states they are comfortable. Patient confirmed she will have access to washing machine at hotel, gave 2nd pair to use in btw washing. Teaching done regarding skin care, use of fungal powder
at bedside in skin folds and compression. Instructed to take miconazole powder and Tubigrip's upon discharge. Aware to apply compression in am after bathing and remove at bedtime daily.
Will confirm orders with hospitalist and updated discharge instructions.
--- NOTE | 2023-09-25 14:28 | W.DS.TRANS ---
DC Summary - [employer]
-
Discharge Instructions:
Discharge Diagnosis/Procedures Ambulatory dysfunction.
Acute on chronic LE cellulites
Diet Regular
Instructions:
Stand-Alone Forms:
Changes to Home Medications: Yes
Discharge Medications:
DC Medications w/original date entered in [employer]
cephalexin 500 mg capsule 500 mg PO QID #20 caps 09/25/23
Home Medication Changes
antibiotic
Pending Results: No
== END 2023-09-25 15:08 | disposition home or self-care (01) ==
LOC: ED 06:30
PROVIDERS: ADMITTING PHYSICIAN Internal Medicine; ATTENDING PHYSICIAN Internal Medicine; EMERGENCY PHYSICIAN Student in an Organized Health Care Education/Training Program; FAMILY PHYSICIAN Family Medicine
DX: L03.116 Cellulitis of left lower limb (principal); L03.115 Cellulitis of right lower limb; I87.2 Venous insufficiency (chronic) (peripheral); R26.2 Difficulty in walking, not elsewhere classified; E03.9 Hypothyroidism, unspecified; D64.9 Anemia, unspecified; R60.0 Localized edema; R26.9 Unspecified abnormalities of gait and mobility; E66.01 Morbid (severe) obesity due to excess calories; Z68.42 Body mass index [BMI] 45.0-49.9, adult; Z79.890 Hormone replacement therapy; Z86.73 Personal history of transient ischemic attack (TIA), and cerebral infarction without residual deficits; Z79.82 Long term (current) use of aspirin; Z59.00 Homelessness unspecified; Z87.440 Personal history of urinary (tract) infections
CPT/HCPCS: 80053; 84439; 84443; 85025; 93970; G0378

== ENCOUNTER 2023-10-10 10:04 | Emergency (ER) | payer OTHER, SELFPAY ==
[2023-10-10 10:10] VITALS: BP 100/53
--- NOTE | 2023-10-10 11:44 | ED.GENMED ---
History of Present Illness
General
Chief Complaint: Skin Problem
Time Seen by Provider: 10/10/23 10:51
History of Present Illness
History of Present Illness:
37-year-old female presents the emergency department initially difficulty walking secondary to worsening lower extremity edema. She recently was hospitalized for this recently at which time he was felt to be adequate for discharge home for
outpatient therapy services. She is not on a diuretic medications. She was also treated for extremity cellulitis with antibiotics but states the symptoms are unchanged despite that
Past History
Past History
ED Past Medical History: CVA (Reported TIA in the past), Hypothyroidism, Psychiatric and Other (Anemia; UTI)
ED Past Surgical History: Appendectomy and
Social History
Tobacco: Non-smoker
Alcohol: None
Drug: None
Personal: Single
Living: homeless
Employment: Not employed
Family History
Family History: Other (Noncontributory)
Review of Systems
Review of Systems
Allergies reviewed?: Yes
All Other Systems: ROS reviewed and negative except as documented in HPI and ROS
Phy Exam
Physical Exam
Physical Exam:
GEN: Well appearing, NAD, WDWN
HEENT: Oral mucosa moist, no scleral icterus
Cardiac: Regular rate
Lung: No respiratory distress, no tachypnea
MSK: No gross deformity or injuries. Severe bilateral lower extremity lymphedema with circumferential erythema consistent with venous stasis dermatitis. Severe extremity digital onychomycosis
Skin: Good color, no pallor or jaundice, no rashes
Neuro: AO x3, moves all extremities freely
Psych: Calm, cooperative
Course
Orders/Labs/Results
Orders:
Orders
10/10/23 11:25
Pt Eval And Treat Urgent
Activity Level: As Tolerated
10/10/23 13:15
Basic Metabolic Panel Urgent
Complete Blood Count/No Diff Urgent
Abnormal Lab Results
10/10/23
13:15
RBC 3.37 L 10^6/uL
(4.20-5.40)
Hgb 10.2 L g/dL
(12.0-16.0)
Hct 31.4 L %
(37.0-47.0)
MCHC 32.5 L g/dL
(33.0-37.0)
RDW 15.4 H %
(11.5-14.5)
Creatinine 1.1 H mg/dL
(0.6-1.0)
Glucose 103 H mg/dl
(70-99)
10/10/23 13:15
10/10/23 13:15
Vital Signs
Initial and Last Documented VS:
Initial Vital Signs
Temp Pulse Resp BP Pulse Ox
97.8 F 80 16 100/53 100
10/10/23 10:10 10/10/23 10:10 10/10/23 10:10 10/10/23 10:10 10/10/23 10:10
Last Documented Vital Signs
Temp Pulse Resp BP Pulse Ox
97.8 F 86 20 129/85 98
10/10/23 10:10 10/10/23 13:55 10/10/23 13:55 10/10/23 13:55 10/10/23 13:55
MDM/Problems Addressed
MDM/Problems Addressed:
Patient's labs are unremarkable. Will trial a short course of as needed diuretics. She was seen by physical therapy and provided with a walker for ambulatory assistance
*Critical Care Note
Total Time (30-74mins, 75-104mins- exclusive of procedures): Not Applicable
ED Attending Note
-
Portions of this chart may have been created with voice recognition software.� Occasional wrong word or��sound alike� substitutions may have occurred due to the inherent limitations of voice recognition software.
Discharge Plan
Departure
Patient Disposition: Home (Routine Discharge)
Date of Disposition: 10/10/23
Time of Disposition: 13:05
Patient with high blood pressure during this ER visit?: No
Discharge Problem:
Lymphedema
Instructions: Lymphedema (DC)
Prescriptions:
New
furosemide 20 mg tablet
20 mg PO DAILY PRN (Reason: edema) Qty: 30 0RF
Referrals:
NONE,* [Family Provider] -
Activity Restrictions/Additional Instructions:
[facility]
[address]
[place] [id number]
[phone]
Interventions
Interventions:
*Risk Screen - Suicide Last Done: 10/10/23 11:00
*General Assessment Last Done: 10/10/23 11:00
*Neglect/Abuse Screening Last Done: 10/10/23 11:00
*Nursing Disposition Last Done: 10/10/23 13:55
ED-Skin Assessment Last Done: 10/10/23 11:00
Discharge Date and Time
Discharge Date/Time: 10/10/23 13:56
Print Language: KHMER
[2023-10-10 13:32] LABS: Hematocrit 31.4 % (37.0-47.0); Hemoglobin 10.2 g/dL (12.0-16.0); Mean Corp Hgb Conc. 32.5 g/dL (33.0-37.0); Mean Corpuscular Hgb 30.3 pg (27.0-31.0); Mean Corpuscular Volume 93.2 fL (81.0-99.0); Mean Platelet Volume 8.8 fL (7.4-10.4); Platelet Count 244 10^3/uL (130-400); Red Blood Cell Count 3.37 10^6/uL (4.20-5.40); Red Cell Dist. Width 15.4 % (11.5-14.5); White Blood Cell Count 5.7 10^3/uL (4.8-10.8)
[2023-10-10 13:41] LABS: Blood Urea Nitrogen 9 mg/dl (7-17); Calcium 8.4 mg/dl (8.4-10.2); Carbon Dioxide 28 mmol/L (22-30); Chloride 106 mmol/L (98-107); Glucose 103 mg/dl (70-99); Potassium 3.6 mmol/L (3.5-5.1); Sodium 138 mmol/L (135-145); eGFR > 60.00
[2023-10-10 13:55] VITALS: BP 129/85
== END 2023-10-10 13:56 | disposition home or self-care (01) ==
LOC: EMR 10:04
PROVIDERS: Physician Assistant; EMERGENCY PHYSICIAN Emergency Medicine
DX: I89.0 Lymphedema, not elsewhere classified (principal)
CPT/HCPCS: 99283; 80048; 85027

== ENCOUNTER 2023-10-11 10:31 | Emergency (ER) | payer OTHER, SELFPAY ==
[2023-10-11 10:34] VITALS: BP 125/70
--- NOTE | 2023-10-11 11:28 | ED.GENMED ---
History of Present Illness
General
Chief Complaint: Cough
Source: patient
Time Seen by Provider: 10/11/23 11:00
History of Present Illness
History of Present Illness:
47-year-old female with past medical history of CVA, hyperlipidemia and hypothyroidism presenting to the emergency department for evaluation of a cough that is been ongoing since Sunday with no other associated. Patient describes the cough to be
dry, constant but worse at nighttime and causes discomfort in her back and chest during coughing spells. Patient has not attempted any medications for relief. She denies any known sick contacts, recent travel or recent antibiotics. She is
otherwise denying any other URI-like symptoms include sore throat, otalgia, rhinorrhea/nasal congestion, headache or any GI related upset.
Past History
Past History
ED Past Medical History: CVA (Reported TIA in the past), Hypothyroidism, Psychiatric and Other (Anemia; UTI)
ED Past Surgical History: Appendectomy and
Social History
Tobacco: Smoker
Alcohol: None
Drug: None
Personal: Single
Living: with family
Employment: Not employed
Family History
Family History: Other (Noncontributory)
Review of Systems
Review of Systems
All Other Systems: ROS reviewed and negative except as documented in HPI and ROS
Phy Exam
Physical Exam
Physical Exam:
GENERAL: Alert , in no apparent distress
EYE: conjunctiva clear
NECK: Supple
ENT: o/p clr, mmm.
CARDIAC: Regular rate and rhythm
LUNGS: Faint bibasilar wheeze posterior lung soto but otherwise clear to auscultation and in no acute respiratory distress
NEUROLOGICAL: Alert and oriented
SKIN: Warm and dry, skin intact.
MUSCULOSKELETAL: well perfused.
PSYCH: Normal and appropriate interaction.
Scores
Heart Failure Risk
Heart Failure Risk Score: Not Applicable
Heart Score for Chest Pain Patients
STEMI patient?: Not applicable
Withdrawal Assessment of Alcohol
Withdrawal Assessment Completed?: Not applicable
Course
Orders/Labs/Results
Orders:
Orders
10/11/23 11:00
CR Chest - 2 Views Urgent
Comment:
Reason For Exam: cough
10/11/23 11:30
COVID-19 Antigen Urgent
Source: Nasal Swab
10/11/23 11:37
Albuterol [ProAIR HFA INHALER] 2 puff INH R NOW STA
Vital Signs
Initial and Last Documented VS:
Initial Vital Signs
Temp Pulse Resp BP Pulse Ox
98.7 F 87 18 125/70 97
10/11/23 10:34 10/11/23 10:34 10/11/23 10:34 10/11/23 10:34 10/11/23 10:34
Last Documented Vital Signs
Temp Pulse Resp BP Pulse Ox
98.7 F 87 18 125/70 97
10/11/23 10:34 10/11/23 10:34 10/11/23 10:34 10/11/23 10:34 10/11/23 10:34
MDM/Problems Addressed
Differential Diagnosis Includes:
covid, viral syndrome, pneumonia, bronchitis
MDM/Problems Addressed:
47-year-old female presenting to the emergency department for evaluation of coughing that is been ongoing since Sunday. No other URI-like symptoms. No cough appreciated during exam here but patient does have some faint bibasilar wheezing on exam.
I do suspect this patient's smoking history is likely contributing to her cough. Chest x-ray performed and was ultimately negative for any acute pathology. COVID test done. I do suspect viral syndrome/bronchitis is most likely diagnosis. Will
treat with inhaler, cough medication and steroid taper. Patient does not have a primary care provider despite having medical insurance so I notified our primary care provider request hotline to help patient obtain primary care provider and
follow-up.
*Radiology
Radiology exam reviewed: preliminary read by ED provider (normal CXR)
*Pulse Oximetry
Patient hypoxic: no
*Critical Care Note
Total Time (30-74mins, 75-104mins- exclusive of procedures): Not Applicable
ED Attending Note
-
Portions of this chart may have been created with voice recognition software.� Occasional wrong word or��sound alike� substitutions may have occurred due to the inherent limitations of voice recognition software.
Discharge Plan
Departure
Patient Disposition: Home (Routine Discharge)
Date of Disposition: 10/11/23
Time of Disposition: 11:28
Patient with high blood pressure during this ER visit?: No
Discharge Problem:
Acute viral syndrome
Instructions: Viral Upper Respiratory Infection, Adult (DC)
Prescriptions:
New
methylprednisolone [Medrol (Hemanth)] 4 mg tablets,dose pack
4 mg PO DIRECTED Qty: 21 0RF
benzonatate 200 mg capsule
200 mg PO BID PRN (Reason: Cough) Qty: 10 0RF
albuterol sulfate 90 mcg/actuation HFA aerosol inhaler
2 puff inhalation QID PRN (Reason: shortness of breath or wheezing) Qty: 6.7 0RF
No Action
furosemide 20 mg tablet
20 mg PO DAILY PRN (Reason: edema) Qty: 30 0RF
Referrals:
NONE,* [Family Provider] -
Interventions
Interventions:
*General Assessment Last Done: 10/11/23 10:34
ED- Fall Risk Assessment Last Done: 10/11/23 11:32
*ED COVID-19 Vaccine History Last Done: 10/11/23 10:34
*Nursing Disposition Last Done: 10/11/23 11:55
ED- Pulmonary Assessment Last Done: 10/11/23 11:31
Discharge Date and Time
Discharge Date/Time: 10/11/23 11:55
Print Language: BRITISH
[2023-10-11 11:50] LABS: COVID-19 Antigen Negative (Negative)
[2023-10-11] MEDS: ProAIR HFA INHALER 2 PUFF INH (11:52)
== END 2023-10-11 11:55 | disposition home or self-care (01) ==
LOC: EMR 10:31
PROVIDERS: Physician Assistant Medical; EMERGENCY PHYSICIAN Emergency Medicine
DX: B34.9 Viral infection, unspecified (principal); R05.9 Cough, unspecified; R06.2 Wheezing; Z11.52 Encounter for screening for COVID-19; E03.9 Hypothyroidism, unspecified; E78.5 Hyperlipidemia, unspecified; D64.9 Anemia, unspecified; F17.200 Nicotine dependence, unspecified, uncomplicated; Z86.73 Personal history of transient ischemic attack (TIA), and cerebral infarction without residual deficits; Z87.440 Personal history of urinary (tract) infections
CPT/HCPCS: 99283; 94640; 71046; 87811

== ENCOUNTER 2023-10-21 13:12 | Emergency (ER) | payer OTHER, SELFPAY ==
[2023-10-21 13:15] VITALS: BP 112/82
--- NOTE | 2023-10-21 14:57 | ED.GENMED ---
History of Present Illness
General
Chief Complaint: Musculo-Skeletal Complaint
Source: patient and previous radiology exam
Exam Limitations: none
Time Seen by Provider: 10/21/23 14:50
Nursing documentation reviewed up to this point in time: agreed with
History of Present Illness
History of Present Illness:
47-year-old female presents emergency department complaining of right-sided rib pain due to coughing. She is recovering from bronchitis. Today she coughed and was worried she dislocated a rib on the right side. She was seen in emergency on 10/09
and 10/10.
Past History
Past History
ED Past Medical History: CVA (Reported TIA in the past), Hypothyroidism, Psychiatric and Other (Anemia; UTI)
ED Past Surgical History: Appendectomy and
Social History
Tobacco: Smoker
Alcohol: None
Drug: None
Personal: Single
Living: with family
Employment: Not employed
Family History
Family History: Other (Noncontributory)
Review of Systems
Review of Systems
Allergies reviewed?: Yes
All Other Systems: Not applicable
Constitutional: Reports no symptoms
EENT: Reports no symptoms
Respiratory: Reports cough
Cardiac: Reports no symptoms
ABD/GI: Reports no symptoms
: Reports no symptoms
Musculoskeletal: Reports no symptoms
Skin: Reports no symptoms
Neurological: Reports no symptoms
Endocrine: Reports no symptoms
Hematologic/Lymphatic: Reports no symptoms
Psychiatric: Reports no symptoms
Phy Exam
Physical Exam
Physical Exam:
Physical Exam
General: no apparent distress, not acutely ill
Neck: supple. no meningeal signs. normal posterior pharynx
Heart: s1/s2 regular rate and rhythm, no murmur. equal radial
pulses.
HEENT: Pupils equal round reactive to light, EOMI
Lungs: no acute respiratory distress. clear bilaterally, cough, right chest wall pain
Abdomen: normal bowel sounds. not tender. no CVAT
Neuro: alert and oriented. no focal neurological deficits cranial nerves II through XII intact
Skin: no rash
Psychiatric: well kept. interactive and cooperative
Extremities: no edema. no calf tenderness. negative homans. good distal pulses
Course
Orders/Labs/Results
Orders:
Orders
10/21/23 14:55
Ribs, Right 3 View W/PA Chest [CR Ribs-right 3 Vw W/pa Chest*] Urgent
Comment:
Reason For Exam: right side rib pain
Vital Signs
Initial and Last Documented VS:
Initial Vital Signs
Temp Pulse Resp BP Pulse Ox
98.0 F 92 16 112/82 98
10/21/23 13:15 10/21/23 13:15 10/21/23 13:15 10/21/23 13:15 10/21/23 13:15
Last Documented Vital Signs
Temp Pulse Resp BP Pulse Ox
98.0 F 92 16 112/82 98
10/21/23 13:15 10/21/23 13:15 10/21/23 13:15 10/21/23 13:15 10/21/23 13:15
MDM/Problems Addressed
Differential Diagnosis Includes:
Pneumonia
MDM/Problems Addressed:
47-year-old female with bronchitis and chest wall pain. Do not suspect ACS, PE. Patient stable for discharge.
*Radiology
Radiology exam reviewed: preliminary read by ED provider (Chest x-ray no acute findings)
*Pulse Oximetry
Patient hypoxic: no
*Critical Care Note
Total Time (30-74mins, 75-104mins- exclusive of procedures): Not Applicable
Data Reviewed
Review of Other/Old Records Reveals: Radiology Studies (Prior chest x-ray normal)
Patient Management
Social determinants of health affecting care: Living situation, Financial situation and Poor outpatient follow-up
Escalation/DeEscalation of care consider admission/obs:
Admit not indicated
ED Attending Note
-
Portions of this chart may have been created with voice recognition software.� Occasional wrong word or��sound alike� substitutions may have occurred due to the inherent limitations of voice recognition software.
Discharge Plan
Departure
Patient Disposition: Home (Routine Discharge)
Date of Disposition: 10/21/23
Time of Disposition: 16:26
Patient with high blood pressure during this ER visit?: No
Condition: Good
Discharge Problem:
Chest wall pain, Acute bronchitis
Instructions: Bronchitis, Adult ED
Prescriptions:
No Action
furosemide 20 mg tablet
20 mg PO DAILY PRN (Reason: edema) Qty: 30 0RF
methylprednisolone [Medrol (Hemanth)] 4 mg tablets,dose pack
4 mg PO DIRECTED Qty: 21 0RF
benzonatate 200 mg capsule
200 mg PO BID PRN (Reason: Cough) Qty: 10 0RF
albuterol sulfate 90 mcg/actuation HFA aerosol inhaler
2 puff inhalation QID PRN (Reason: shortness of breath or wheezing) Qty: 6.7 0RF
Referrals:
NONE,* [Family Provider] -
Activity Restrictions/Additional Instructions:
Follow up with primary care. Return for any concerns.
Interventions
Interventions:
*Risk Screen - Suicide Last Done: 10/21/23 13:35
*General Assessment Last Done: 10/21/23 13:35
*Neglect/Abuse Screening Last Done: 10/21/23 13:35
ED- Fall Risk Assessment Last Done: 10/21/23 13:35
*Nursing Disposition Last Done: 10/21/23 17:12
ED-Musculoskeletal Assessment Last Done: 10/21/23 13:35
Discharge Date and Time
Discharge Date/Time: 10/21/23 17:12
Print Language: ICELANDIC
== END 2023-10-21 17:12 | disposition home or self-care (01) ==
LOC: EMR 13:12
PROVIDERS: EMERGENCY PHYSICIAN Emergency Medicine
DX: R07.89 Other chest pain (principal); J20.9 Acute bronchitis, unspecified; E03.9 Hypothyroidism, unspecified; F17.200 Nicotine dependence, unspecified, uncomplicated; Z86.73 Personal history of transient ischemic attack (TIA), and cerebral infarction without residual deficits; Z87.440 Personal history of urinary (tract) infections; Z90.49 Acquired absence of other specified parts of digestive tract
CPT/HCPCS: 99283; 71101

== ENCOUNTER 2023-10-24 21:51 | Emergency (ER) | payer OTHER, SELFPAY ==
[2023-10-24 21:54] VITALS: BP 108/76
--- NOTE | 2023-10-24 22:12 | ED.GENMED ---
History of Present Illness
<LUISA Martin - Last Filed: 10/25/23 01:37>
General
Chief Complaint: Breathing Problem
Time Seen by Provider: 10/24/23 22:02
History of Present Illness
History of Present Illness:
Pt is a 48 y/o female with PMHx of TIA, hypothyroid, and iron deficiency anemia presenting for right sided rib pain secondary to coughing. She states she was recently diagnosed with bronchitis and her symptoms are getting worse despite using her
albuterol inhaler. She was seen here on 10/21/23 for similar symptoms and prescribed a medrol dose pack and benzonatate but states she was unable to pick them up due to lack of transportation. She states her cough has gotten worse and she is coughing
up yellow mucous. She states this cough is causing right sided anterior lower rib pain. She states the pain is a sharp 9/10 only when she coughs. She denies any fevers, rhinorrhea, abdominal pain, chest pain, nausea, vomiting, change in bowel
habits.
Past History
<LUISA Martin - Last Filed: 10/25/23 01:37>
Past History
ED Past Medical History: CVA (Reported TIA in the past), Hypothyroidism, Psychiatric and Other (Anemia; UTI)
ED Past Surgical History: Appendectomy and
Social History
Tobacco: Smoker
Alcohol: None
Drug: None
Personal: Single
Living: with family
Employment: Not employed
Family History
Family History: Other (Noncontributory)
Phy Exam
<LUISA Martin - Last Filed: 10/25/23 01:37>
Physical Exam
Physical Exam:
GENERAL: Alert , in no apparent distress
EYE: pupils equal and reactive
Throat: Airway intact, no exudates
NECK: Supple, no significant adenopathy.
CARDIAC: Regular rate and rhythm .
LUNGS: Diffuse wheezing heard in all lung soto. Cough is noted on exam. Patient is in no acute respiratory distress.
ABDOMEN: Soft, nondistended, nontender, no cvat
NEUROLOGICAL: Alert and oriented, no focal neuro deficits
SKIN: Warm, dry, intact.
MUSCULOSKELETAL: B/l LE edema. Dorsalis pedis pulses 2+ b/l.
PSYCH: Normal and appropriate interaction.
Scores
<Nory Moncada DO - Last Filed: 10/25/23 01:07>
Heart Failure Risk
Heart Failure Risk Score: Not Applicable
Course
<LUISA Martin - Last Filed: 10/25/23 01:37>
Orders/Labs/Results
Orders:
Orders
10/24/23 22:32
Free T4 Urgent
TSH Reflex To Free T4 Urgent
Acetaminophen [Tylenol] 1,000 mg PO NOW STA
Ipratropium/Albuterol Sulfate [Duoneb] 3 ml INH R NOW STA
Prednisone [Deltasone] 50 mg PO NOW STA
Abnormal Lab Results
10/24/23
22:32
TSH (Reflex) 77.90 H uIU/ml
(0.47-4.68)
Free T4 < 0.07 L ng/dl
(0.78-2.19)
Vital Signs
Initial and Last Documented VS:
Initial Vital Signs
Temp Pulse Resp BP Pulse Ox
97.7 F 77 24 108/76 98
10/24/23 21:54 10/24/23 21:54 10/24/23 21:54 10/24/23 21:54 10/24/23 21:54
Last Documented Vital Signs
Temp Pulse Resp BP Pulse Ox
97.7 F 77 24 104/81 97
10/24/23 21:54 10/24/23 23:15 10/24/23 21:54 10/24/23 23:15 10/24/23 23:30
<Nory Moncada DO - Last Filed: 10/25/23 01:07>
Orders/Labs/Results
Orders:
Orders
10/24/23 22:32
Free T4 Urgent
TSH Reflex To Free T4 Urgent
Acetaminophen [Tylenol] 1,000 mg PO NOW STA
Ipratropium/Albuterol Sulfate [Duoneb] 3 ml INH R NOW STA
Prednisone [Deltasone] 50 mg PO NOW STA
Abnormal Lab Results
10/24/23
22:32
TSH (Reflex) 77.90 H uIU/ml
(0.47-4.68)
Free T4 < 0.07 L ng/dl
(0.78-2.19)
Vital Signs
Initial and Last Documented VS:
Initial Vital Signs
Temp Pulse Resp BP Pulse Ox
97.7 F 77 24 108/76 98
10/24/23 21:54 10/24/23 21:54 10/24/23 21:54 10/24/23 21:54 10/24/23 21:54
Last Documented Vital Signs
Temp Pulse Resp BP Pulse Ox
97.7 F 77 24 104/81 97
10/24/23 21:54 10/24/23 23:15 10/24/23 21:54 10/24/23 23:15 10/24/23 23:30
<LUISA Martin - Last Filed: 10/25/23 01:37>
*Pulse Oximetry
Patient hypoxic: no
*EKG
Interpreted by ED Provider?: NA
*Policyholder Information Clerk Interpretation
Rate: Policyholder Information Clerk- N/A
*Critical Care Note
Total Time (30-74mins, 75-104mins- exclusive of procedures): Not Applicable
<LUISA Martin - Last Filed: 10/25/23 01:37>
Update Note
Update Note:
0031: Expiratory wheezing markedly improved s/p DuoNeb treatment.
ED Attending Note
<LUISA Martin - Last Filed: 10/25/23 01:37>
-
Portions of this chart may have been created with voice recognition software.� Occasional wrong word or��sound alike� substitutions may have occurred due to the inherent limitations of voice recognition software.
<Nory Moncada DO - Last Filed: 10/25/23 01:07>
ED Attending Note
Patient seen and examined by attending physician: Yes
I performed the substantive portion of visit, reviewed & personally made and approve the management plan that is documented in note by myself or GUNNER.: Yes
I performed a history and physical exam of patient and discussed management with resident, I reviewed resident's note and agree with documented findings and plan of care.: Yes
ED Attending Note:
This is a 48-year-old morbidly obese, chronically homeless woman with a history of hypothyroidism, anemia, chronic lymphedema bilateral extremities with stasis dermatitis, hyperlipidemia presents to this ED via 911 with complaints of persistent
cough, wheezing that began 2 weeks ago.
Frequent ED visits over the past 6 weeks, initially with complaints of bilateral lower extremity edema and redness with unremarkable DVT studies of bilateral lower extremities, normal BNP.
Lower extremity edema has been improving more recently as she was prescribed a short course of furosemide 20 mg during ED visit October 09.
She returned to the ED the following day, October 10 with complaints of acute URI symptoms. Chest x-ray was unremarkable at that time, COVID testing was negative. She was prescribed albuterol inhaler which was given to her during that ED visit and
prescribed a Medrol Dosepak as well as Tessalon Perles which she states she was unable to fern picker at the pharmacy due to lack of reliable transportation.
She returned to the ED October 20 with complaints of continued cough along with some right anterior lower rib pain, worse with coughing. She remains afebrile and has not reported a fever during course of URI.
Chest x-ray again unremarkable and right rib series negative for fracture.
She returns to the ED tonight with complaints of persistent cough and persistent right anterolateral lower chest discomfort only noted with coughing.
She has not been taking anything for pain, has no access to [id number] pain medications.
Patient was seen by myself September 15/regional account manager September 16 with complaints of lower extremity edema. During that ED visit she was noted to have elevated TSH of 81.2. Prior to that patient had been briefly hospitalized at [facility] for TIA
symptoms. CVA was ruled out but was noted to have elevated TSH at 90. Synthroid 200 mcg was prescribed at that time and with elevated TSH of 81.2, 09/16, I elected to increase her Synthroid to 300 mcg and a prescription for 90-day was sent to her
pharmacy. During that visit I also elected to refill a 90-day supply of atorvastatin 80 mg as well as aspirin 81 mg and ferrous sulfate 325 mg.
Patient states she has been compliant with these medications.
TSH 1 week later, September 24 had improved to 63.4.
She is due for follow-up TSH and as patient lacks PCP despite multiple referrals, lacks reliable transportation to PCP will recheck thyroid function.
All other labs have remained stable with mild but stable anemia. Normal white blood cell count.
Mildly elevated creatinine of 1.1 but stable with most recent evaluation just 1 week ago.
Patient does continue to smoke cigarettes, states she has recently decreased to 1/2 pack/day.
Lower extremity edema has improved.
GENERAL: 48-year-old obese woman appears somewhat older than stated age, awake and alert, pleasant, appears in no acute distress. Intermittent dry hacking cough is noted but no shortness of breath and able to speak in full sentences. Afebrile.
Vital signs reviewed, all within normal limits. Pulse ox 98% on room air.
EYE: anicteric, mild eczematous dermatitis of eyelids, similar to previous exam September 16, 2023.
NECK: Supple, nontender, no meningismus, no significant adenopathy. No JVD.
ENT: posterior pharynx is clear, oral mucosa is moist. TM clear b/l, nares patent.
CARDIAC: Regular rate and rhythm. no murmur.
LUNGS: no acute respiratory distress, scattered expiratory wheezing bilaterally. No rales no rhonchi. Right chest wall pain. No crepitus.
ABDOMEN: Rotund, soft, nondistended, without focal tenderness, no r/g, no cvat. normoactive BS.
NEUROLOGICAL: Alert and oriented x3, no focal neuro deficits. Gait is steady.
SKIN: Warm and dry, normal color, skin intact. Minimal venous stasis skin thickening bilateral lower extremities with very minimal brawniness but no ulcerations, no palpable heat or palpable tenderness.
MUSCULOSKELETAL: No clubbing or cyanosis. Bilateral lower extremity chronic lymphedema/nonpitting edema with mild venous stasis skin thickening bilateral lower extremities. Peripheral pulses are full and equal b/l. No palpable tenderness.
PSYCH: Mildly blunted affect. Cooperative and easily communicative.
Concern for persistent asthmatic bronchitis.
Unremarkable chest x-rays October 10 as well as October 20. No indication to repeat.
Did not retrieve prescription for Medrol Dosepak, Tesdenita Daniels that was prescribed October 10.
I would recommend initiation of oral steroids and will give a dose of prednisone now.
With mild renal insufficiency will avoid NSAIDs especially in combination with oral steroids. Will give Tylenol for pain.
Will give DuoNeb nebulizer now.
Will check TSH with reflex to free T4.
Patient has been strongly encouraged to discontinue cigarettes. Total time of smoking cessation counseling�3 minutes.
10/25/2023 0016 AM
Patient resting comfortably with marked improvement in cough.
Lungs with scant scattered end expiratory wheezing but markedly improved with marked improvement in air movement.
Respirations are easy and nonlabored.
TSH is pending.
10/25/2023 0059 AM
TSH remains elevated 77.9.
Patient assures me she has been compliant with Synthroid 300 mcg daily however does not have her bottles with her. She states they are in a backpack in the [place] where she is currently residing.
Inquiring if she needs to be admitted for IV levothyroxine as this has been done previously in the past.
At this point no indication for acute hospitalization, no evidence of severe hypothyroidism and I question compliance with medication.
Nonetheless we will titrate Synthroid dose to 450 mcg. Recommend she continue 300 mcg and will add 150 mcg.
Lengthy discussion with patient regarding the importance that she establish with with a PCP for follow-up and further evaluation.
She has been provided referral information for our family practice clinic which has been provided again today.
Encouraged that she schedule an appointment for follow-up.
Due to current inclement weather, raining, patient requests to remain in our lobby till the a.m.
Discharge Plan
Departure
Patient Disposition: Home (Routine Discharge)
Date of Disposition: 10/25/23
Time of Disposition: 01:03
Patient with high blood pressure during this ER visit?: No
Condition: Good
Discharge Problem:
Asthmatic bronchitis, Tobacco abuse counseling, Hypothyroidism (acquired)
Instructions: Hypothyroidism (underactive thyroid), Asthma, Adult (DC), Acute Bronchitis, Adult (DC), Quitting Smoking ED
Prescriptions:
New
prednisone 10 mg Tablet
See Rx Instructions .ROUTE .COMPLEX Qty: 30 0RF
Rx Instructions:
Take By Mouth:
40 mg daily x3 days, 30 mg daily x3 days,
20 mg daily x3 days, 10 mg daily x3 days.
atorvastatin 80 mg tablet
80 mg PO HS Qty: 90 0RF
ferrous sulfate [Feosol] 325 mg (65 mg iron) tablet
325 mg PO DAILY Qty: 90 0RF
acetaminophen [Pain Relief ES (acetaminophen)] 500 mg tablet
1,000 mg PO Q6H PRN (Reason: fever or pain) Qty: 90 0RF
albuterol sulfate 90 mcg/actuation aerosol powdr breath activated
2 inh inhalation Q6H PRN (Reason: shortness of breath or wheezing) Qty: 1 1RF
levothyroxine 150 mcg capsule
150 mcg PO DAILY Qty: 90 0RF
Rx Instructions:
Continue 300 mcg daily along with 150 mcg (450 mcg total/day)
levothyroxine [Synthroid] 300 mcg tablet
300 mcg PO DAILY Qty: 90 0RF
No Action
furosemide 20 mg tablet
20 mg PO DAILY PRN (Reason: edema) Qty: 30 0RF
benzonatate 200 mg capsule
200 mg PO BID PRN (Reason: Cough) Qty: 10 0RF
albuterol sulfate 90 mcg/actuation HFA aerosol inhaler
2 puff inhalation QID PRN (Reason: shortness of breath or wheezing) Qty: 6.7 0RF
Referrals:
[facility] [Provider Group] - Call in 1-3 days for appt
NONE,* [Family Provider] -
Interventions
Interventions:
*Risk Screen - Suicide Last Done: 10/24/23 21:54
*General Assessment Last Done: 10/24/23 21:54
*Neglect/Abuse Screening Last Done: 10/24/23 21:54
ED- Fall Risk Assessment Last Done: 10/24/23 21:54
*ED COVID-19 Vaccine History Last Done: 10/24/23 21:54
ED- Cardiac Assessment Last Done: 10/24/23 23:30
ED- Pulmonary Assessment Last Done: 10/24/23 23:30
Discharge Date and Time
Print Language: CROATIAN
[2023-10-24 23:08] VITALS: BMI 48.0
[2023-10-24 23:15] VITALS: BP 104/81
[2023-10-24] MEDS: TYLENOL 1000 MG PO (23:15)
[2023-10-24] MEDS: DELTASONE 50 MG PO (23:15)
[2023-10-24] MEDS: DUONEB 3 ML INH (23:15)
[2023-10-25 01:01] LABS: Free T4 < 0.07 ng/dl (0.78-2.19)
[2023-10-25 01:30] VITALS: BP 109/78
== END 2023-10-25 01:30 | disposition home or self-care (01) ==
LOC: EMR 21:51
PROVIDERS: EMERGENCY PHYSICIAN Emergency Medicine
DX: J45.901 Unspecified asthma with (acute) exacerbation (principal); E03.9 Hypothyroidism, unspecified; Z71.6 Tobacco abuse counseling; R60.0 Localized edema; R07.81 Pleurodynia; D50.9 Iron deficiency anemia, unspecified; E78.5 Hyperlipidemia, unspecified; L30.9 Dermatitis, unspecified; N28.9 Disorder of kidney and ureter, unspecified; E66.01 Morbid (severe) obesity due to excess calories; Z68.42 Body mass index [BMI] 45.0-49.9, adult; F17.210 Nicotine dependence, cigarettes, uncomplicated; Z59.00 Homelessness unspecified; Z86.73 Personal history of transient ischemic attack (TIA), and cerebral infarction without residual deficits; Z87.440 Personal history of urinary (tract) infections
CPT/HCPCS: 99283; 94640; 84439; 84443

== ENCOUNTER 2023-11-23 21:31 | Emergency (ER) | payer OTHER, SELFPAY ==
[2023-11-23 21:33] VITALS: BP 141/93
[2023-11-23 22:00] VITALS: BP 101/62; BMI 46.3
[2023-11-23 22:53] LABS: Urine Albumin 1+ (Neg - Trace); Urine Bilirubin Negative (Negative); Urine Character Slightly Cloudy (Clear); Urine Color Yellow; Urine Glucose Negative (Negative); Urine Ketone Negative (Negative); Urine Leukocyte 2+ (Negative); Urine Nitrite Negative (Negative); Urine Occult Blood 3+ (Negative); Urine Urobilinogen Negative (Neg - 1+); Urine pH 6.5 (5.0-9.0)
[2023-11-23 22:58] LABS: % Basophils 0.9 % (0-2); % Eosinophils 0.8 % (0-6); % Immature Granulocytes 0.6 % (0-0.5); % Monocytes 10.1 % (1.7-9.3); % Neutrophils 65.6 % (42.2-75.2); Absolute Basophils 0.1 10^3/uL (0-0.2); Absolute Eosinophils 0.1 10^3/uL (0-0.7); Absolute Immature Granulocytes 0.1 10^3/uL (0-0.05); Absolute Lymphocytes 2.3 10^3/uL (1.2-3.4); Absolute Neutrophils 6.8 10^3/uL (1.4-6.5); Hematocrit 32.6 % (37.0-47.0); Mean Corp Hgb Conc. 33.7 g/dL (33.0-37.0); Mean Corpuscular Hgb 29.3 pg (27.0-31.0); Mean Corpuscular Volume 86.7 fL (81.0-99.0); Mean Platelet Volume 9.4 fL (7.4-10.4); Nucleated Red Blood Cells % 0 %; Platelet Count 209 10^3/uL (130-400); Red Blood Cell Count 3.76 10^6/uL (4.20-5.40); Red Cell Dist. Width 14.9 % (11.5-14.5); White Blood Cell Count 10.3 10^3/uL (4.8-10.8)
--- NOTE | 2023-11-23 23:05 | ED.GENMED ---
History of Present Illness
<Alicia Blackmon MD, Resident - Last Filed: 11/24/23 15:14>
General
Chief Complaint: Abdominal Pain
Source: patient
Exam Limitations: none
Time Seen by Provider: 11/23/23 21:49
Nursing documentation reviewed up to this point in time: agreed with
History of Present Illness
History of Present Illness:
48-year-old female with history of TIA, hypothyroidism, iron deficiency anemia, who presented to the ED with abdominal pain, nausea/non-bloody vomiting x 3 days, with wheezing and cough which started tonight. Reduce p.o. intake due to difficulty
keeping food and liquids down. No fever/sweats, headaches, difficulty swallowing, urinary symptoms, diarrhea, or blood in stool,
Past History
<Alicia Blackmon MD, Resident - Last Filed: 11/24/23 15:14>
Past History
ED Past Medical History: CVA (Reported TIA in the past), Hypothyroidism, Psychiatric and Other (Anemia; UTI)
ED Past Surgical History: Appendectomy and
Social History
Tobacco: Smoker
Alcohol: None
Drug: None
Personal: Single
Living: homeless (in a hotel)
Employment: Not employed
Family History
Family History: Other (Noncontributory)
Review of Systems
<Alicia Blackmon MD, Resident - Last Filed: 11/24/23 15:14>
Review of Systems
Allergies reviewed?: Yes
Constitutional: Denies fever or night sweats
Respiratory: Reports cough and other (wheezing); Denies trouble breathing
ABD/GI: Reports abdominal pain (LLQ), nausea and vomiting; Denies diarrhea or bloody stools
: Denies dysuria, difficulty voiding or bleeding
Musculoskeletal: Denies back pain
Neurological: Denies headache
Phy Exam
<Alicia Blackmon MD, Resident - Last Filed: 11/24/23 15:14>
General Physical Exam
General Presentation: no apparent distress and other (malodorous)
General Skin: warm and dry
Cardiovascular Exam
Cardiovascular Exam: no edema, no gallop, no murmur, tachycardia and other (regular rhythm)
Heart Sounds: normal
Pulmonary Exam
Pulmonary Exam: no respiratory distress, no rales, no crackles and no rhonchi
Gastrointestinal Exam
Gastrointestinal Exam: normal bowel sounds, soft, non distended, cva tenderness (bilateral L>R) and tender (LLQ)
Course
<Alicia Blackmon MD, Resident - Last Filed: 11/24/23 15:14>
Orders/Labs/Results
Orders:
Orders
11/23/23 22:01
Test Result ONCE
11/23/23 22:13
Urinalysis Reflex To Culture Urgent
Date Specimen was Collected: 11/23/23
Time Specimen was Collected: 22:01
Urine Microscopic Reflex Cult Urgent
Urine Culture Urgent
BRYAN Source: U
Specimen Description:
Date Specimen was Collected: 11/23/23
Time Specimen was Collected: 22:01
11/23/23 22:48
Complete Blood Count/With Diff Urgent
11/23/23 23:08
Ipratropium/Albuterol Sulfate [Duoneb] 3 ml INH R NOW ONE
11/23/23 23:50
Comprehensive Metabolic Panel Urgent
HCG, Serum Qualitative Screen Urgent
Lipase Urgent
11/24/23 00:00
CT Abd/pelvis W Iv Cont Urgent
Reason For Exam: LLQ pain
CR Chest - 2 Views Urgent
Reason For Exam: cough
11/24/23 01:04
Sulfamethox./Trimethoprim Ds [Bactrim Ds 800 mg/160 mg] 1 tablet PO NOW STA
Abnormal Lab Results
11/23/23 11/23/23 11/23/23
22:13 22:48 23:50
RBC 3.76 L 10^6/uL
(4.20-5.40)
Hgb 11.0 L g/dL
(12.0-16.0)
Hct 32.6 L %
(37.0-47.0)
RDW 14.9 H %
(11.5-14.5)
Abs Immat Gran (auto) 0.1 H 10^3/uL
(0-0.05)
Absolute Neuts (auto) 6.8 H 10^3/uL
(1.4-6.5)
Absolute Monos (auto) 1.0 H 10^3/uL
(0.1-0.6)
Immature Gran % 0.6 H %
(0-0.5)
Monocytes % 10.1 H %
(1.7-9.3)
Creatinine 1.1 H mg/dL
(0.6-1.0)
Glucose 105 H mg/dl
(70-99)
Ur Occult Blood Reflex 3+ A
(Negative)
Leukocyte Esterase Rfl 2+ A
(Negative)
Urine RBC 11-15 A /HPF
(0-2)
Urine WBC (Reflex) >100 A /HPF
(0-5)
Urine Bacteria (Reflex) Few A
(Negative)
Urine Albumin (Reflex) 1+ A
(Neg - Trace)
11/23/23 22:48
11/23/23 23:50
Vital Signs
Initial and Last Documented VS:
Initial Vital Signs
Temp Pulse Resp BP Pulse Ox
97.8 F 117 24 141/93 94
11/23/23 21:33 11/23/23 21:33 11/23/23 21:33 11/23/23 21:33 11/23/23 21:33
Last Documented Vital Signs
Temp Pulse Resp BP Pulse Ox
97.8 F 93 19 100/71 97
11/23/23 21:33 11/24/23 00:00 11/24/23 00:00 11/24/23 01:02 11/24/23 01:01
<Araceli Navarrete MD - Last Filed: 11/24/23 01:16>
Orders/Labs/Results
Orders:
Orders
11/23/23 22:01
Test Result ONCE
11/23/23 22:13
Urinalysis Reflex To Culture Urgent
Date Specimen was Collected: 11/23/23
Time Specimen was Collected: 22:01
Urine Microscopic Reflex Cult Urgent
Urine Culture Urgent
BRYAN Source: U
Specimen Description:
Date Specimen was Collected: 11/23/23
Time Specimen was Collected: 22:01
11/23/23 22:48
Complete Blood Count/With Diff Urgent
11/23/23 23:08
Ipratropium/Albuterol Sulfate [Duoneb] 3 ml INH R NOW ONE
11/23/23 23:50
Comprehensive Metabolic Panel Urgent
HCG, Serum Qualitative Screen Urgent
Lipase Urgent
11/24/23 00:00
CT Abd/pelvis W Iv Cont Urgent
Reason For Exam: LLQ pain
CR Chest - 2 Views Urgent
Reason For Exam: cough
11/24/23 01:04
Sulfamethox./Trimethoprim Ds [Bactrim Ds 800 mg/160 mg] 1 tablet PO NOW STA
Abnormal Lab Results
11/23/23 11/23/23 11/23/23
22:13 22:48 23:50
RBC 3.76 L 10^6/uL
(4.20-5.40)
Hgb 11.0 L g/dL
(12.0-16.0)
Hct 32.6 L %
(37.0-47.0)
RDW 14.9 H %
(11.5-14.5)
Abs Immat Gran (auto) 0.1 H 10^3/uL
(0-0.05)
Absolute Neuts (auto) 6.8 H 10^3/uL
(1.4-6.5)
Absolute Monos (auto) 1.0 H 10^3/uL
(0.1-0.6)
Immature Gran % 0.6 H %
(0-0.5)
Monocytes % 10.1 H %
(1.7-9.3)
Creatinine 1.1 H mg/dL
(0.6-1.0)
Glucose 105 H mg/dl
(70-99)
Ur Occult Blood Reflex 3+ A
(Negative)
Leukocyte Esterase Rfl 2+ A
(Negative)
Urine RBC 11-15 A /HPF
(0-2)
Urine WBC (Reflex) >100 A /HPF
(0-5)
Urine Bacteria (Reflex) Few A
(Negative)
Urine Albumin (Reflex) 1+ A
(Neg - Trace)
11/23/23 22:48
11/23/23 23:50
Vital Signs
Initial and Last Documented VS:
Initial Vital Signs
Temp Pulse Resp BP Pulse Ox
97.8 F 117 24 141/93 94
11/23/23 21:33 11/23/23 21:33 11/23/23 21:33 11/23/23 21:33 11/23/23 21:33
Last Documented Vital Signs
Temp Pulse Resp BP Pulse Ox
97.8 F 93 19 100/71 97
11/23/23 21:33 11/24/23 00:00 11/24/23 00:00 11/24/23 01:02 11/24/23 01:01
<Alicia Blackmon MD, Resident - Last Filed: 11/24/23 15:14>
MDM/Problems Addressed
Differential Diagnosis Includes:
pyelonephritis, diverticulitis, ovarian torsion, nephrolithiasis, cystitis
MDM/Problems Addressed:
Tachycardic and tachypneic. Left lower quadrant pain with CVA tenderness, with nausea and vomiting, will get urinalysis, CBC, CMP, urine hCG. Appropriate to do CT abdomen and pelvis with IV contrast.
Given wheezing noted on physical exam patient will also get CXR.
Of note, pt is currently experiencing homelessness among other socioeconomic stressors. Non-adherence to medication including thyroid medication with recent TSH of 77.
<Alicia Blackmon MD, Resident - Last Filed: 11/24/23 15:14>
*Critical Care Note
Total Time (30-74mins, 75-104mins- exclusive of procedures): Not Applicable
<Araceli Navarrete MD - Last Filed: 11/24/23 01:16>
*Radiology
Radiology exam reviewed: preliminary read by ED provider (Chest x-ray read by me. No acute disease) and radiology read reviewed
<Araceli Navarrete MD - Last Filed: 11/24/23 01:16>
Update Note
Update Note:
1:00 AM patient is resting comfortably for hours without any fever or vomiting. CT shows no evidence of infected kidney stone. Will be treated for acute UTI. Patient is breathing comfortably without tachypnea.
I talked to patient about the importance of her taking her medication. Patient is not sure if her medications are still available for pickup at her pharmacy in [place] because she has not attempted to pick them up for about 3 months.
Therefore, I have prescribed the patient her medications and told her that her thyroid function is significantly abnormal because she has not been taking her levothyroxine.
Patient CT also shows sign of gallstones, however, patient has no right upper quadrant tenderness at all to suggest symptomatic gallbladder disease nor does she have an elevation of her LFTs or lipase.
Her friend is at the bedside and reassures me that the patient has a safe place to live, which is in a hotel, until she is evaluated by a criminal justice social worker this coming up week to discuss housing options.
ED Attending Note
<Alicia Blackmon MD, Resident - Last Filed: 11/24/23 15:14>
-
Portions of this chart may have been created with voice recognition software.� Occasional wrong word or��sound alike� substitutions may have occurred due to the inherent limitations of voice recognition software.
<Araceli Navarrete MD - Last Filed: 11/24/23 01:16>
ED Attending Note
Patient seen and examined by attending physician: Yes
I performed a history and physical exam of patient and discussed management with resident, I reviewed resident's note and agree with documented findings and plan of care.: Yes
ED Attending Note:
Patient appears nontoxic on exam. She appears comfortable. She has mild left lower quadrant and left flank tenderness. In addition, patient is also coughing with a mild audible wheeze. We will give patient a DuoNeb and do a chest x-ray. Patient
will be evaluated for pyelonephritis, acute diverticulitis, pneumonia, sed rate. Additionally, patient reports he has been noncompliant with her medicine for about 3 months. She denies suicidal and homicidal thoughts. She reports she is currently
living in a hotel and is meeting with some kind of criminal justice social worker this Sunday to discuss housing options. Before patient is discharged, we will also send an electronic consult to social work so she can have some kind of follow-up on our end as well.
Discharge Plan
Departure
Patient Disposition: Home (Routine Discharge)
Date of Disposition: 11/24/23
Time of Disposition: 01:04
Patient with high blood pressure during this ER visit?: No
Consults for patient: Case Management
Condition: Good
Covid-19: Not Applicable
Discharge Problem:
Acute UTI
Instructions: Urinary Tract Infection, Adult ED
Prescriptions:
New
sulfamethoxazole-trimethoprim [Bactrim DS] 800-160 mg tablet
1 tab PO BID 7 Days Qty: 14 0RF
atorvastatin 80 mg tablet
80 mg PO DAILY Qty: 30 0RF
ferrous sulfate 325 mg (65 mg iron) tablet
325 mg PO DAILY Qty: 30 0RF
levothyroxine 150 mcg capsule
150 mcg PO DAILY Qty: 30 0RF
albuterol sulfate 90 mcg/actuation aerosol powdr breath activated
2 inh inhalation Q6H PRN (Reason: shortness of breath or wheezing) Qty: 1 0RF
No Action
furosemide 20 mg tablet
20 mg PO DAILY PRN (Reason: edema) Qty: 30 0RF
benzonatate 200 mg capsule
200 mg PO BID PRN (Reason: Cough) Qty: 10 0RF
albuterol sulfate 90 mcg/actuation HFA aerosol inhaler
2 puff inhalation QID PRN (Reason: shortness of breath or wheezing) Qty: 6.7 0RF
prednisone 10 mg Tablet
See Rx Instructions .ROUTE .COMPLEX Qty: 30 0RF
Rx Instructions:
Take By Mouth:
40 mg daily x3 days, 30 mg daily x3 days,
20 mg daily x3 days, 10 mg daily x3 days.
atorvastatin 80 mg tablet
80 mg PO HS Qty: 90 0RF
ferrous sulfate [Feosol] 325 mg (65 mg iron) tablet
325 mg PO DAILY Qty: 90 0RF
acetaminophen [Pain Relief ES (acetaminophen)] 500 mg tablet
1,000 mg PO Q6H PRN (Reason: fever or pain) Qty: 90 0RF
albuterol sulfate 90 mcg/actuation aerosol powdr breath activated
2 inh inhalation Q6H PRN (Reason: shortness of breath or wheezing) Qty: 1 1RF
levothyroxine 150 mcg capsule
150 mcg PO DAILY Qty: 90 0RF
Rx Instructions:
Continue 300 mcg daily along with 150 mcg (450 mcg total/day)
levothyroxine [Synthroid] 300 mcg tablet
300 mcg PO DAILY Qty: 90 0RF
Referrals:
NONE,* [Family Provider] -
Interventions
Interventions:
*Risk Screen - Suicide Last Done: 11/23/23 21:54
*General Assessment Last Done: 11/23/23 21:54
*Neglect/Abuse Screening Last Done: 11/23/23 21:54
ED- Fall Risk Assessment Last Done: 11/24/23 01:17
*ED COVID-19 Vaccine History Last Done: 11/23/23 21:54
*Nursing Disposition Last Done: 11/24/23 01:17
KR-Gzphyx-Ylgpbomdzb Assessment Last Done: 11/23/23 21:54
ED- Cardiac Assessment Last Done: 11/23/23 21:54
ED- Pulmonary Assessment Last Done: 11/23/23 21:54
Discharge Date and Time
Discharge Date/Time: 11/24/23 01:18
Print Language: VIET[place]ESE
[2023-11-23 23:13] LABS: Urine Bacteria Few (Negative); Urine Squamous Cell >30 /LPF (Few); Urine White Cell >100 /HPF (0-5)
[2023-11-23] MEDS: DUONEB 3 ML INH (23:14)
[2023-11-24 00:09] LABS: HCG, Serum Qualitative Screen Negative
[2023-11-24 00:13] LABS: ALT (SGPT) 13 U/L (0-35); AST (SGOT) 19 U/L (14-36); Albumin 4.5 g/dl (3.5-5.0); Alkaline Phosphatase 82 U/L (38-126); Blood Urea Nitrogen 15 mg/dl (7-17); Calcium 9.4 mg/dl (8.4-10.2); Carbon Dioxide 25 mmol/L (22-30); Chloride 99 mmol/L (98-107); Estimated Creatinine Clearance 75 ml/min; Glucose 105 mg/dl (70-99); Lipase 57 U/L (23-300); Potassium 4.3 mmol/L (3.5-5.1); Sodium 135 mmol/L (135-145); Total Protein 7.6 g/dl (6.3-8.2); eGFR > 60.00
[2023-11-24 01:02] VITALS: BP 100/71
[2023-11-24] MEDS: BACTRIM DS 800 MG/160 MG 1 TABLET PO (01:14)
== END 2023-11-24 01:18 | disposition home or self-care (01) ==
LOC: EMR 21:31
PROVIDERS: Student in an Organized Health Care Education/Training Program; EMERGENCY PHYSICIAN Emergency Medicine
DX: E03.9 Hypothyroidism, unspecified (principal); D50.9 Iron deficiency anemia, unspecified; F17.200 Nicotine dependence, unspecified, uncomplicated; N39.0 Urinary tract infection, site not specified; Z59.01 Sheltered homelessness; Z86.73 Personal history of transient ischemic attack (TIA), and cerebral infarction without residual deficits; Z87.440 Personal history of urinary (tract) infections; Z90.49 Acquired absence of other specified parts of digestive tract; Z91.148 Patient's other noncompliance with medication regimen for other reason
CPT/HCPCS: 99284; 94640; 71046; 74177; 80053; 81003; 81015; 83690; 84703; 85025; 87086; Q9967

== ENCOUNTER 2023-12-01 02:06 | Emergency (ER) | payer OTHER, SELFPAY ==
[2023-12-01 02:07] VITALS: BP 114/73
[2023-12-01 02:15] VITALS: BMI 46.4
--- NOTE | 2023-12-01 02:31 | ED.GENMED ---
History of Present Illness
<LUISA Grider - Last Filed: 12/05/23 22:01>
General
Chief Complaint: Abdominal Pain
Source: patient
Time Seen by Provider: 12/01/23 02:13
Nursing documentation reviewed up to this point in time: agreed with
History of Present Illness
History of Present Illness:
Pt is a 48 y/o F with pmhx of COPD, anemia, and prior appendectomy presents with complaints of LLQ abdominal pain xfew hours ago. The LLQ abdominal pain is described as a sharp sensation, radiates to the back, and is rated an 8/10. There is
associated nausea and 1 episode of vomiting. She denies bloody vomit, diarrhea, constipation, fever, and change in urination. The patient was seen last week for similar symptoms and was treated for an acute UTI and was treated with Bactrim, which
she was compliant with.
<Luis Manuel Robledo DO - Last Filed: 12/01/23 03:32>
History of Present Illness
History of Present Illness:
Pt is a 48 y/o F with pmhx of COPD, anemia, and prior appendectomy presents with complaints of LLQ abdominal pain xfew hours ago. The LLQ abdominal pain is described as a sharp sensation, radiates to the back, and is rated an 8/10. There is
associated nausea and 1 episode of vomiting. She denies bloody vomit, diarrhea, constipation, fever, and change in urination. The patient was seen last week for similar symptoms and was treated for an acute UTI and was treated with Bactrim, which
she was compliant with.
0322 this is a 48-year-old homeless female who presents with left lower quadrant abdominal pain. She was recently in the emergency department for the same symptoms and was treated with Bactrim. The patient states she did feel little better but no
dysuria. No fever. Shortly after history was obtained, patient asked if she could wait in the waiting room. Again, she is homeless but is hoping to go to her aunts house. She does admit that she is not always compliant with her medications.
Past History
<LUISA Grider - Last Filed: 12/05/23 22:01>
Past History
ED Past Medical History: CVA (Reported TIA in the past), Hypothyroidism, Psychiatric and Other (Anemia; UTI)
ED Past Surgical History: Appendectomy and
Social History
Tobacco: Smoker (1 PPD)
Alcohol: None
Drug: None
Personal: Single
Living: homeless (in a hotel)
Employment: Not employed
Family History
Family History: Other (Noncontributory)
Review of Systems
<LUISA Grider - Last Filed: 12/05/23 22:01>
Review of Systems
Allergies reviewed?: Yes
Constitutional: Reports no symptoms
EENT: Reports no symptoms
Respiratory: Reports no symptoms
Cardiac: Reports no symptoms
ABD/GI: Reports abdominal pain (LLQ), nausea and vomiting
: Reports no symptoms
Musculoskeletal: Reports no symptoms
Skin: Reports no symptoms
Neurological: Reports no symptoms
Endocrine: Reports no symptoms
Hematologic/Lymphatic: Reports no symptoms
Psychiatric: Reports no symptoms
Phy Exam
<LUISA Grider - Last Filed: 12/05/23 22:01>
General Physical Exam
General Presentation: well appearing and mild distress
General age: appears older than age
General Skin: warm and dry
General Mental: alert
ENT Exam
ENT Exam: neck supple
Cardiovascular Exam
Cardiovascular Exam: regular rate/rhythm and normal peripheral pulses
Pulmonary Exam
Pulmonary Exam: no respiratory distress
Gastrointestinal Exam
Gastrointestinal Exam: normal bowel sounds and cva tenderness (Left)
Palpation: left upper quadrant: No tenderness, left lower quadrant: Severe tenderness, right upper quadrant: No tenderness and right lower quadrant: Mild tenderness
Neurological Exam
Neurological Exam: alert, oriented x3, no motor deficits and no sensory deficits
Musculoskeletal Exam
Musculoskeletal Exam: full ROM
Skin Exam
Skin Exam: normal color and warm/dry
Psychiatric Exam
Psychiatric Exam: normal mood/affect
<Luis Manuel Robledo DO - Last Filed: 12/01/23 03:32>
Physical Exam
Physical Exam:
CONSTITUTIONAL Patient alert and oriented to person, place and time. Well-appearing. Vital signs reviewed. Poor dentition
HEAD atraumatic, normocephalic.
EYES eyelids normal to inspection, Extraocular muscles intact, Conjunctiva normal, Sclera normal.
NECK normal range of motion, Trachea midline, no jugular venous distention.
RESPIRATORY CHEST No respiratory distress noted, Chest expansion equal, Bilateral breath sounds clear.
CARDIOVASCULAR regular rate and rhythm, Heart sounds normal.
ABDOMEN very mild left lower quadrant tenderness, Bowel sounds normal. No distention.
BACK normal inspection, no obvious deformities
UPPER EXTREMITY range of motion normal, Motor strength normal, no cyanosis, no edema.
LOWER EXTREMITY range of motion normal, Motor strength normal, no cyanosis, no edema.
NEURO Speech normal, No focal motor deficits, [place] coma scale 15, Memory normal, Cranial Nerves intact to screening exam.
SKIN skin warm, dry, and normal in color.
Course
<LUISA Grider - Last Filed: 12/05/23 22:01>
Orders/Labs/Results
Orders:
Orders
12/01/23 02:15
IV Insert/Care/Rem.- Treatment PRN
12/01/23 02:16
Test Result ONCE
12/01/23 02:19
Complete Blood Count/With Diff Urgent
Comprehensive Metabolic Panel Urgent
HCG, Serum Qualitative Screen Urgent
Comment: Notify provider if positive test present
Lipase Urgent
12/01/23 02:30
Urinalysis Reflex To Culture Urgent
Date Specimen was Collected: 12/01/23
Time Specimen was Collected: 02:29
Urine Microscopic Reflex Cult Urgent
Urine Culture Urgent
BRYAN Source: U
Specimen Description:
Date Specimen was Collected: 12/01/23
Time Specimen was Collected: :
Abnormal Lab Results
12/01/23 12/01/23
02:19 02:30
RBC 4.04 L 10^6/uL
(4.20-5.40)
Hgb 11.5 L g/dL
(12.0-16.0)
Hct 35.6 L %
(37.0-47.0)
MCHC 32.3 L g/dL
(33.0-37.0)
RDW 15.0 H %
(11.5-14.5)
Abs Immat Gran (auto) 0.3 H 10^3/uL
(0-0.05)
Immature Gran % 3.6 H %
(0-0.5)
Creatinine 1.3 H mg/dL
(0.6-1.0)
Glucose 106 H mg/dl
(70-99)
Leukocyte Esterase Rfl 1+ A
(Negative)
Urine WBC (Reflex) 21-25 A /HPF
(0-5)
Urine Bacteria (Reflex) Few A
(Negative)
12/01/23 02:19
12/01/23 02:19
Vital Signs
Initial and Last Documented VS:
Initial Vital Signs
Temp Pulse Resp BP Pulse Ox
98 F 84 16 114/73 99
12/01/23 02:07 12/01/23 02:07 12/01/23 02:07 12/01/23 02:07 12/01/23 02:07
Last Documented Vital Signs
Temp Pulse Resp BP Pulse Ox
98 F 77 17 92/58 99
12/01/23 02:07 12/01/23 03:26 12/01/23 03:26 12/01/23 03:26 12/01/23 02:07
<Luis Manuel Robledo, - Last Filed: 12/01/23 03:32>
Orders/Labs/Results
Orders:
Orders
12/01/23 02:15
IV Insert/Care/Rem.- Treatment PRN
12/01/23 02:16
Test Result ONCE
12/01/23 02:19
Complete Blood Count/With Diff Urgent
Comprehensive Metabolic Panel Urgent
HCG, Serum Qualitative Screen Urgent
Comment: Notify provider if positive test present
Lipase Urgent
12/01/23 02:30
Urinalysis Reflex To Culture Urgent
Date Specimen was Collected: 12/01/23
Time Specimen was Collected: 02:29
Urine Microscopic Reflex Cult Urgent
Urine Culture Urgent
BRYAN Source: U
Specimen Description:
Date Specimen was Collected: 12/01/23
Time Specimen was Collected: 02:29
Abnormal Lab Results
12/01/23 12/01/23
02:19 02:30
RBC 4.04 L 10^6/uL
(4.20-5.40)
Hgb 11.5 L g/dL
(12.0-16.0)
Hct 35.6 L %
(37.0-47.0)
MCHC 32.3 L g/dL
(33.0-37.0)
RDW 15.0 H %
(11.5-14.5)
Abs Immat Gran (auto) 0.3 H 10^3/uL
(0-0.05)
Immature Gran % 3.6 H %
(0-0.5)
Creatinine 1.3 H mg/dL
(0.6-1.0)
Glucose 106 H mg/dl
(70-99)
Leukocyte Esterase Rfl 1+ A
(Negative)
Urine WBC (Reflex) 21-25 A /HPF
(0-5)
Urine Bacteria (Reflex) Few A
(Negative)
12/01/23 02:19
12/01/23 02:19
Vital Signs
Initial and Last Documented VS:
Initial Vital Signs
Temp Pulse Resp BP Pulse Ox
98 F 84 16 114/73 99
12/01/23 02:07 12/01/23 02:07 12/01/23 02:07 12/01/23 02:07 12/01/23 02:07
Last Documented Vital Signs
Temp Pulse Resp BP Pulse Ox
98 F 77 17 92/58 99
12/01/23 02:07 12/01/23 03:26 12/01/23 03:26 12/01/23 03:26 12/01/23 02:07
<LUISA Grider - Last Filed: 12/05/23 22:01>
MDM/Problems Addressed
Differential Diagnosis Includes:
Pyelonephritis
Cystitis
Diverticulitis
<Luis Manuel Robledo DO - Last Filed: 12/01/23 03:32>
MDM/Problems Addressed
MDM/Problems Addressed:
Abdominal pain
<Luis Manuel Robledo DO - Last Filed: 12/01/23 03:32>
*Pulse Oximetry
Patient hypoxic: no
*Critical Care Note
Total Time (30-74mins, 75-104mins- exclusive of procedures): Not Applicable
Data Reviewed
Review of Other/Old Records Reveals: Labs (Previous labs reviewed) and Radiology Studies (CT scan from November 22 reviewed)
Source: patient
Further Testing Considered But Not Given:
Consider repeat CT but previous CT performed was negative in the face of the same symptoms.
<Luis Manuel Robledo DO - Last Filed: 12/01/23 03:32>
Patient Management
Escalation/DeEscalation of care consider admission/obs:
Consider repeat CT but labs grossly unremarkable. No left shift. Normal white count. CT performed on the sixth was for the same symptoms and was negative. I do feel that she does not need repeat CT at this time. She otherwise appears well. I
did question whether she presented more for social reasons. Patient does request to sit in the waiting room. Urinalysis noted but will wait on culture. If culture is positive obviously we should treat with antibiotics but for now we will hold off
pending culture
ED Attending Note
<LUISA Grider - Last Filed: 12/05/23 22:01>
-
Portions of this chart may have been created with voice recognition software.� Occasional wrong word or��sound alike� substitutions may have occurred due to the inherent limitations of voice recognition software.
Discharge Plan
Departure
Patient Disposition: Home (Routine Discharge)
Date of Disposition: 12/01/23
Time of Disposition: 03:44
Patient with high blood pressure during this ER visit?: No
Discharge Problem:
Abdominal pain
Instructions: Abdominal Pain
Prescriptions:
No Action
ferrous sulfate [Feosol] 325 mg (65 mg iron) tablet
325 mg PO DAILY Qty: 90 0RF
acetaminophen [Pain Relief ES (acetaminophen)] 500 mg tablet
1,000 mg PO Q6H PRN (Reason: fever or pain) Qty: 90 0RF
atorvastatin 80 mg tablet
80 mg PO DAILY Qty: 30 0RF
levothyroxine 150 mcg capsule
150 mcg PO DAILY Qty: 30 0RF
albuterol sulfate 90 mcg/actuation HFA aerosol inhaler
2 puff inhalation Q6HPRN PRN (Reason: shortness of breath or wheezing)
Activity Restrictions/Additional Instructions:
Return immediately for worsening pain, intractable vomiting or any other concerns. Please drink plenty fluids. See your doctor or the clinic in the next 3 to 5 days for follow-up and reevaluation.
Interventions
Interventions:
*Risk Screen - Suicide Last Done: 12/01/23 02:07
*General Assessment Last Done: 12/01/23 02:07
*Neglect/Abuse Screening Last Done: 12/01/23 02:07
ED- Fall Risk Assessment Last Done: 12/01/23 02:26
*ED COVID-19 Vaccine History Last Done: 12/01/23 02:07
*Nursing Disposition Last Done: 12/01/23 04:01
JW-Klpgle-Mijzcuqhrf Assessment Last Done: 12/01/23 02:36
Discharge Date and Time
Discharge Date/Time: 12/01/23 04:01
Print Language: SLOVAK
[2023-12-01 02:40] LABS: Urine Albumin Negative (Neg - Trace); Urine Bilirubin Negative (Negative); Urine Character Clear (Clear); Urine Color Yellow; Urine Glucose Negative (Negative); Urine Ketone Negative (Negative); Urine Leukocyte 1+ (Negative); Urine Nitrite Negative (Negative); Urine Occult Blood Negative (Negative); Urine Urobilinogen Negative (Neg - 1+)
[2023-12-01 02:40] LABS: % Basophils 1.3 % (0-2); % Eosinophils 2.3 % (0-6); % Immature Granulocytes 3.6 % (0-0.5); % Lymphocytes 28.5 % (20.5-51.1); % Monocytes 5.1 % (1.7-9.3); % Neutrophils 59.2 % (42.2-75.2); Absolute Basophils 0.1 10^3/uL (0-0.2); Absolute Eosinophils 0.2 10^3/uL (0-0.7); Absolute Immature Granulocytes 0.3 10^3/uL (0-0.05); Absolute Lymphocytes 2.5 10^3/uL (1.2-3.4); Absolute Monocytes 0.5 10^3/uL (0.1-0.6); Absolute Neutrophils 5.2 10^3/uL (1.4-6.5); Hematocrit 35.6 % (37.0-47.0); Hemoglobin 11.5 g/dL (12.0-16.0); Mean Corp Hgb Conc. 32.3 g/dL (33.0-37.0); Mean Corpuscular Hgb 28.5 pg (27.0-31.0); Mean Corpuscular Volume 88.1 fL (81.0-99.0); Mean Platelet Volume 8.6 fL (7.4-10.4); Nucleated Red Blood Cells % 0 %; Platelet Count 383 10^3/uL (130-400); Red Blood Cell Count 4.04 10^6/uL (4.20-5.40); White Blood Cell Count 8.8 10^3/uL (4.8-10.8)
[2023-12-01 02:52] LABS: HCG, Serum Qualitative Screen Negative
[2023-12-01 02:53] LABS: Urine Bacteria Few (Negative); Urine Red Blood Cell 0-2 /HPF (0-2); Urine Squamous Cell 21-25 /LPF (Few); Urine White Cell 21-25 /HPF (0-5)
[2023-12-01 03:00] VITALS: BP 95/56
[2023-12-01 03:03] LABS: ALT (SGPT) 14 U/L (0-35); AST (SGOT) 17 U/L (14-36); Albumin 4.7 g/dl (3.5-5.0); Alkaline Phosphatase 96 U/L (38-126); Blood Urea Nitrogen 17 mg/dl (7-17); Calcium 9.6 mg/dl (8.4-10.2); Carbon Dioxide 27 mmol/L (22-30); Chloride 99 mmol/L (98-107); Estimated Creatinine Clearance 64 ml/min; Glucose 106 mg/dl (70-99); Lipase 135 U/L (23-300); Potassium 4.3 mmol/L (3.5-5.1); Sodium 140 mmol/L (135-145); Total Bilirubin 0.3 mg/dl (0.2-1.3); Total Protein 8.2 g/dl (6.3-8.2); eGFR 50.72
[2023-12-01 03:26] VITALS: BP 92/58
== END 2023-12-01 04:01 | disposition home or self-care (01) ==
LOC: EMR 02:06
PROVIDERS: EMERGENCY PHYSICIAN Emergency Medicine
DX: R10.32 Left lower quadrant pain (principal); R11.2 Nausea with vomiting, unspecified; M54.9 Dorsalgia, unspecified; J44.9 Chronic obstructive pulmonary disease, unspecified; D64.9 Anemia, unspecified; Z91.148 Patient's other noncompliance with medication regimen for other reason; E03.9 Hypothyroidism, unspecified; Z59.01 Sheltered homelessness; Z86.73 Personal history of transient ischemic attack (TIA), and cerebral infarction without residual deficits; Z87.440 Personal history of urinary (tract) infections
CPT/HCPCS: 99283; 80053; 81003; 81015; 83690; 84703; 85025; 87086